=== PATIENT | female | born 1940 | race Caucasian/White ===

== ENCOUNTER 2018-04-30 09:45 | Outpatient (REF) | payer MEDICARE, OTHER, SELFPAY ==
[2018-04-30 19:59] LABS: ALT 26 U/L (12-78); AST 23 U/L (15-37); Albumin 3.6 g/dL (3.4-5.0); Alkaline Phosphatase 81 U/L (46-116); Anion Gap 6.1 mmol/L (3-11); BUN 14 mg/dL (7-18); Bilirubin, Total 0.5 mg/dL (0.2-1.0); CO2 29.9 mmol/L (21.0-32.0); CREATININE 0.84 mg/dL (0.55-1.02); Calcium 9.5 mg/dL (8.5-10.1); Chloride 102 mmol/L (98-107); Cholesterol 230 mg/dL (50-200); Glucose 90 mg/dL (70-100); HDL Cholesterol 70 mg/dL (40-60); LDL CHOLESTEROL 136 mg/dL (<100); Potassium 4.3 mmol/L (3.5-5.1); Sodium 138 mmol/L (136-145); Total Protein 7.4 g/dL (6.4-8.2); Triglyceride 138 mg/dL (30-150)
== END 2018-04-30 10:05 ==
LOC: NCHCN 09:45
PROVIDERS: PCP Nurse Practitioner Family; Visit Provider Physician Assistant Medical
DX: I63.9 Cerebral infarction, unspecified (principal); E78.89 Other lipoprotein metabolism disorders
CPT/HCPCS: 80053; 80061; 83721

== ENCOUNTER 2018-05-28 01:20 | Outpatient (CLI) | payer MEDICARE, OTHER, SELFPAY ==
--- NOTE | 2018-05-28 15:09 | DI.RAD_ITS ---
SYMPTOMS/DIAGNOSIS: HEALTH SCREENING, Z13.9, POSTMENOPAUSAL, Z78.0 DEXA SCAN: DEXA scan was performed according to the usual protocol. Findings for the lumbar spine scanning are a T score of 0.6. Findings for left hip scanning are a T score of -1.3 with left femoral neck T score of -1.5. Previous examination of March 2008 showed left hip T score of -0.8. Left forearm scanning shows a T score of -1.0. Please note that the lateral vertebral scanogram shows no evidence of vertebral compression fracture. CONCLUSION: Findings consistent with osteopenia according to the WHO criteria.
--- NOTE | 2018-05-28 16:22 | DI.MAMMO_ITS ---
SYMPTOMS/DIAGNOSIS: SCREENING, Z12.31, HEALTH SCREENING, Z13.9 MAMMOGRAM: Mammograms were interpreted according to the usual protocol including computer analysis with CAD system, tomosynthesis and C view imaging. The breasts are of moderate density with fairly symmetrical distribution of fibroglandular tissue. No dominant mass or clumped microcalcification is identified in either breast. Current examination is compared with the previous examinations including May 2017 and there has been no gross interval change in appearance in comparison with the previous studies. CONCLUSION: No specific evidence of malignancy at this time. Routine screening examinations are suggested at yearly intervals in this age group according to the ACS/ACR guidelines. Category 1, breast density category B. SA ASSESSMENT OF FINDINGS: Negative. Category 1. Patient will receive a letter notifying them of these results. BI-RADS category B. There are scattered areas of fibroglandular density.
== END 2018-05-28 01:40 ==
PROVIDERS: PCP Physician Assistant Medical; Visit Provider Physician Assistant Medical
DX: Z12.31 Encounter for screening mammogram for malignant neoplasm of breast (principal); M85.88 Other specified disorders of bone density and structure, other site; Z78.0 Asymptomatic menopausal state
CPT/HCPCS: 77063; 77067; 77080

== ENCOUNTER 2019-05-07 16:15 | Outpatient (REF) | payer MEDICARE, OTHER, SELFPAY ==
[2019-05-07 20:15] LABS: Abs Immature Grans 0.02 k/cumm (0.0-0.09); Absolute Basophil Count 0.04 k/cumm (0.0-0.2); Absolute Eosinophil Count 0.15 k/cumm (0.0-0.7); Absolute Lymphocyte Count 3.33 k/cumm (1.2-3.4); Absolute Monocyte Count 0.54 k/cumm (0.11-0.7); Absolute Neutrophil Count 4.43 k/cumm (1.2-6.7); Basophils % 0.5; Eosinophils % 1.8; HCT 42.7 % (36.0-46.0); HGB 14.1 g/dL (12.0-15.5); Immature Grans % 0.2; Lymphocytes % 39.1; Mean Corpuscular Hemoglobin 29.4 pg (27.0-33.0); Mean Platelet Volume 10.3 fL (8.0-11.0); Monocytes % 6.3; Neutrophils % 52.1; Platelet Count 394 x1000/uL (130-400); RBC Distribution Width 13.9 % (11.7-14.6); White Blood Cell Count 8.51 k/cumm (4.4-10.8)
[2019-05-07 20:33] LABS: ALT 30 U/L (14-59); AST 24 U/L (15-37); Albumin 3.7 g/dL (3.4-5.0); Alkaline Phosphatase 103 U/L (46-116); Anion Gap 11.2 mmol/L (3-11); BUN 21 mg/dL (7-18); Bilirubin, Total 0.2 mg/dL (0.2-1.0); CO2 24.8 mmol/L (21.0-32.0); CREATININE 0.78 mg/dL (0.55-1.02); Calcium 9.3 mg/dL (8.5-10.1); Chloride 104 mmol/L (98-107); Glucose 126 mg/dL (70-100); Potassium 4.2 mmol/L (3.5-5.1); Sodium 140 mmol/L (136-145); Total Protein 7.5 g/dL (6.4-8.2)
[2019-05-09 12:41] LABS: Hemoglobin A1C 5.5 % (4.5-6.2)
== END 2019-05-07 16:35 ==
LOC: NCHCN 16:15
PROVIDERS: PCP Physician Assistant Medical; Visit Provider Physician Assistant Medical
DX: R53.83 Other fatigue (principal); R73.9 Hyperglycemia, unspecified
CPT/HCPCS: 80053; 83036; 85025

== ENCOUNTER 2019-07-17 02:17 | Outpatient (CLI) | payer MEDICARE, OTHER, SELFPAY ==
--- NOTE | 2019-07-17 16:11 | DI.MAMMO_ITS ---
EXAM: MG MAMMO SCREENING CLINICAL HISTORY: SCREENING, [facility] Z00.00 TECHNIQUE: Mammograms were interpreted according to the usual protocol including computer analysis w [employer] CAD system, tomosynthesis and C-view imaging. COMPARISON: May 2018 FINDINGS: The breasts are of moderate density with fairly symmetrical distribution of fibroglandular tissue. N o dominant mass or clumped microcalcification is identified in either breast. Current examination is compared with previous examinations including May 2018 and there has been no gross interval khadijah nge in appearance in comparison with previous studies. IMPRESSION: No specific evidence of malignancy at this time. Routine screening examinations are suggested at year ly intervals in this age group according to the ACS/ACR guidelines. Category 1, breast density catego ry B. BI-RADS Cat 1 - Negative Breast Density - Category B - Scattered areas of fibroglandular density
== END 2019-07-17 02:37 ==
PROVIDERS: PCP Physician Assistant Medical; Visit Provider Physician Assistant Medical
DX: Z12.31 Encounter for screening mammogram for malignant neoplasm of breast (principal)
CPT/HCPCS: 77063; 77067

== ENCOUNTER 2020-05-05 10:46 | Outpatient (REF) | payer MEDICARE, OTHER, SELFPAY ==
[2020-05-05 20:51] LABS: Abs Immature Grans 0.01 10^3/uL (0.0-0.06); Absolute Basophil Count 0.06 10^3/uL (0.0-0.2); Absolute Eosinophil Count 0.11 10^3/uL (0.0-0.7); Absolute Lymphocyte Count 2.16 10^3/uL (1.2-3.4); Absolute Monocyte Count 0.49 10^3/uL (0.1-0.8); Absolute Neutrophil Count 3.32 10^3/uL (1.2-6.7); Eosinophils % 1.8; HCT 43.6 % (36.0-46.0); HGB 14.2 g/dL (11.2-15.7); Immature Grans % 0.2; Lymphocytes % 35.1; MCH 29.3 pg (27.0-33.0); MCHC 32.6 % (32.0-36.0); MCV 90.1 fL (80-95); MPV 10.2 fL (8.0-11.0); Neutrophils % 53.9; Nucleated RBC 0 %; Platelet Count 388 10^3/uL (130-400); RBC 4.84 10^6/uL (3.93-5.22); RDW 13.5 % (11.7-14.6); RDW-SD 44.6 fL; WBC 6.15 10^3/uL (4.4-10.8)
[2020-05-05 21:21] LABS: ALT 25 U/L (14-59); AST 22 U/L (15-37); Albumin 3.6 g/dL (3.4-5.0); Alkaline Phosphatase 91 U/L (46-116); Anion Gap 4.8 mmol/L (3-11); BUN 18 mg/dL (7-18); Bilirubin, Total 0.4 mg/dL (0.2-1.0); CO2 29.2 mmol/L (21.0-32.0); CREATININE 0.66 mg/dL (0.55-1.02); Calcium 9.6 mg/dL (8.5-10.1); Chloride 104 mmol/L (98-107); Glucose 82 mg/dL (74-106); Potassium 4.4 mmol/L (3.5-5.1); Sodium 138 mmol/L (136-145); TSH (W/Ref FT4) 1.44 uIU/mL (0.36-3.74); Total Protein 7.4 g/dL (6.4-8.2)
[2020-05-05 21:27] LABS: Hemoglobin A1C 5.4 % (<5.7)
== END 2020-05-05 11:06 ==
LOC: NCHCN 10:46
PROVIDERS: PCP Physician Assistant Medical; Visit Provider Physician Assistant Medical
DX: R53.83 Other fatigue (principal)
CPT/HCPCS: 80053; 83036; 84443; 85025

== ENCOUNTER 2021-02-04 03:52 | Outpatient (CLI) | payer MEDICARE, OTHER, SELFPAY ==
--- NOTE | 2021-02-04 | DI.MAMMO_ITS ---
Exam(s) MAMMO SCREENING EXAM: MAMMO SCREENING CLINICAL HISTORY: SCREENING, [facility],Z00.00 TECHNIQUE: Bilateral full field digital CC and MLO mammographic images were obtained with 3D tomosyn thesis and utilizing computer aided detection (CAD). COMPARISON: Available for comparison. FINDINGS: Masses/Architectural Distortion: None seen. Microcalcifications: No suspicious pleomorphic-type are seen. Skin Thickening/Nipple Retraction: None. IMPRESSION: 1. No significant interval change with no specific features of malignancy noted. 2. Unless there is more urgent need, screening mammography is recommended, as per [employer] guidelines. BI-RADS Category 1 - Negative Breast Density - Category B - Scattered areas of fibroglandular density Breast density category C or D implies that the patient has dense breast tissue. Dense breast tissue is very common and is not abnormal but dense breast tissue can make it harder to find cancer on a ma mmogram. Also, dense breast tissue may increase their breast cancer risk. This information about the result of the mammogram report was provided to the patient to raise their awareness. Use this report when you speak with the patient about their risks for breast cancer, which includes their family hist ory. At that time, you may recommend for more screening tests (Ultrasound or MRI) as they might be us eful based on their risk. A negative radiographic report should not delay biopsy if a dominant or clinically suspicious mass is present. Up to ten percent of cancers are not identified on mammography. A negative report may reinforce clinical impression. Adenosis and dense breasts may obscure an underlying neoplasm. False positive reports average 6 to 10%. Patient will receive a letter notifying them of these results.
== END 2021-02-04 04:12 ==
PROVIDERS: PCP Physician Assistant Medical; Visit Provider Physician Assistant Medical
DX: Z00.00 Encounter for general adult medical examination without abnormal findings (principal); Z12.31 Encounter for screening mammogram for malignant neoplasm of breast; R92.8 Other abnormal and inconclusive findings on diagnostic imaging of breast
CPT/HCPCS: 77063; 77067

== ENCOUNTER 2021-02-28 14:46 | Outpatient (REF) | payer MEDICARE, OTHER, SELFPAY ==
[2021-03-01 16:26] LABS: COVID-19 RT-PCR UVMMC Result Negative (Negative)
== END 2021-02-28 14:47 | disposition home or self-care (01) ==
LOC: NCHCN 14:46
PROVIDERS: PCP Physician Assistant Medical; Visit Provider Physician Assistant Medical
DX: Z20.822 Contact with and (suspected) exposure to COVID-19 (principal); J32.9 Chronic sinusitis, unspecified
CPT/HCPCS: U0003; U0005

== ENCOUNTER 2021-03-15 14:09 | Outpatient (REF) | payer MEDICARE, OTHER, SELFPAY ==
[2021-03-16 02:28] LABS: COVID-19 RT-PCR UVMMC Result Negative (Negative)
== END 2021-03-15 14:10 | disposition home or self-care (01) ==
LOC: NCHCN 14:09
PROVIDERS: PCP Physician Assistant Medical; Visit Provider Physician Assistant Medical
DX: Z20.822 Contact with and (suspected) exposure to COVID-19 (principal); J34.89 Other specified disorders of nose and nasal sinuses
CPT/HCPCS: U0003; U0005

== ENCOUNTER 2021-03-22 10:26 | Outpatient (REF) | payer MEDICARE, OTHER, SELFPAY ==
[2021-03-22 16:00] LABS: ALT 28 U/L (14-59); AST 23 U/L (15-37); Albumin 3.7 g/dL (3.4-5.0); Alkaline Phosphatase 101 U/L (46-116); Anion Gap 9.6 mmol/L (3-11); BUN 17 mg/dL (7-18); Bilirubin, Total 0.4 mg/dL (0.2-1.0); CO2 26.4 mmol/L (21.0-32.0); CREATININE 0.9 mg/dL (0.55-1.02); Calcium 9.3 mg/dL (8.5-10.1); Calculated LDL 148 mg/dL (<100); Chloride 105 mmol/L (98-107); Cholesterol 245 mg/dL (<200); Glucose 72 mg/dL (74-106); HDL Cholesterol 66 mg/dL (40-60); Potassium 4.8 mmol/L (3.5-5.1); Sodium 141 mmol/L (136-145); Total Protein 7.4 g/dL (6.4-8.2); Triglyceride 159 mg/dL (<150)
== END 2021-03-22 10:27 | disposition home or self-care (01) ==
LOC: NCHCN 10:26
PROVIDERS: PCP Physician Assistant Medical; Referring Provider Physician Assistant Medical; Visit Provider Physician Assistant Medical
DX: R03.0 Elevated blood-pressure reading, without diagnosis of hypertension (principal)
CPT/HCPCS: 80053; 80061

== ENCOUNTER 2021-04-18 10:45 | Outpatient (REF) | payer MEDICARE, OTHER, SELFPAY ==
[2021-04-20 16:15] LABS: COVID-19 RT-PCR UVMMC Result Positive (Negative)
== END 2021-04-18 10:46 | disposition home or self-care (01) ==
LOC: LBN 10:45
PROVIDERS: PCP Physician Assistant Medical; Visit Provider Physician Assistant
DX: Z20.822 Contact with and (suspected) exposure to COVID-19 (principal); J06.9 Acute upper respiratory infection, unspecified
CPT/HCPCS: U0003

== ENCOUNTER 2021-04-22 00:59 | Outpatient (CLI) | payer MEDICARE, OTHER, SELFPAY ==
[2021-04-22 08:30] VITALS: BP 170/79; PULSE 71; RESP 24; TEMP 36.9; O2SAT 95
[2021-04-22 08:42] VITALS: BP 170/79; PULSE 71; RESP 24; TEMP 36.9; O2SAT 95
[2021-04-22] MEDS: Normal Saline 500 ML 30 ML IV (09:24)
[2021-04-22 09:33] VITALS: BP 163/82; PULSE 61; RESP 24; TEMP 37.2; O2SAT 96
[2021-04-22 09:50] VITALS: BP 160/82; PULSE 64; RESP 20; TEMP 36.6; O2SAT 94
[2021-04-22 10:32] VITALS: BP 144/78; PULSE 59; RESP 20; TEMP 36.6; O2SAT 97
[2021-04-22] MEDS: Normal Saline Flush 10 ML SYR IVP (10:35)
[2021-04-22 10:45] VITALS: BP 161/75; PULSE 66; RESP 20; TEMP 36.9; O2SAT 97
== END 2021-04-22 01:00 | disposition home or self-care (01) ==
PROVIDERS: PCP Physician Assistant Medical; Visit Provider Family Medicine
DX: U07.1 COVID-19 (principal)
CPT/HCPCS: 96365

== ENCOUNTER 2022-04-25 19:09 | Outpatient (REF) | payer MEDICARE, OTHER, SELFPAY ==
[2022-04-25 15:22] LABS: HCT 42.6 % (36.0-46.0); HGB 14.1 g/dL (11.2-15.7); MCH 29.7 pg (27.0-33.0); MCHC 33.1 % (32.0-36.0); MCV 90 fL (80-95); Platelet Count 388 10^3/uL (130-400); RBC 4.74 10^6/uL (3.93-5.22); RDW 13.4 % (11.7-14.6); RDW-SD 44.7 fL; WBC 7.88 10^3/uL (4.4-10.8)
[2022-04-25 15:57] LABS: ALT 24 U/L (14-59); AST 23 U/L (15-37); Albumin 3.7 g/dL (3.4-5.0); Alkaline Phosphatase 96 U/L (46-116); Anion Gap 7.9 mmol/L (3-11); BUN 16 mg/dL (7-18); Bilirubin, Total 0.3 mg/dL (0.2-1.0); CO2 27.1 mmol/L (21.0-32.0); CREATININE 0.8 mg/dL (0.55-1.02); Calcium 9.4 mg/dL (8.5-10.1); Chloride 103 mmol/L (98-107); Estimated GFR 73.06 (mL/min/1.73m2); Glucose 124 mg/dL (74-106); Potassium 3.6 mmol/L (3.5-5.1); Sodium 138 mmol/L (136-145); Total Protein 7.7 g/dL (6.4-8.2)
[2022-04-28 15:42] LABS: Hemoglobin A1C 5.4 % (<5.7)
== END 2022-04-25 19:10 | disposition home or self-care (01) ==
LOC: NCHCN 19:09
PROVIDERS: PCP Physician Assistant Medical; Visit Provider Physician Assistant Medical
DX: R03.0 Elevated blood-pressure reading, without diagnosis of hypertension (principal); R73.9 Hyperglycemia, unspecified
CPT/HCPCS: 80053; 85027; 83036

== ENCOUNTER 2023-05-21 10:40 | Outpatient (REF) | payer MEDICARE, OTHER, SELFPAY ==
[2023-05-21 15:21] LABS: HCT 43.3 % (36.0-46.0); HGB 14.8 g/dL (11.2-15.7); MCH 29.3 pg (27.0-33.0); MCHC 34.2 % (32.0-36.0); MCV 86 fL (80-95); MPV 9.6 fL (8.0-11.0); Platelet Count 438 10^3/uL (130-400); RBC 5.05 10^6/uL (3.93-5.22); RDW 13.4 % (11.7-14.6); RDW-SD 42.1 fL; WBC 7.64 10^3/uL (4.4-10.8)
[2023-05-21 15:38] LABS: ALT 26 U/L (14-59); AST 21 U/L (15-37); Albumin 3.5 g/dL (3.4-5.0); Alkaline Phosphatase 101 U/L (46-116); Anion Gap 8.3 mmol/L (3-11); BUN 18 mg/dL (7-18); Bilirubin, Total 0.5 mg/dL (0.2-1.0); CO2 26.7 mmol/L (21.0-32.0); CREATININE 0.8 mg/dL (0.55-1.02); Calcium 9.7 mg/dL (8.5-10.1); Calculated LDL 137 mg/dL (<100); Chloride 102 mmol/L (98-107); Cholesterol 232 mg/dL (<200); Estimated GFR 72.61 (mL/min/1.73m2); Glucose 92 mg/dL (74-106); HDL Cholesterol 65 mg/dL (40-60); Sodium 137 mmol/L (136-145); Total Protein 7.6 g/dL (6.4-8.2); Triglyceride 150 mg/dL (<150)
== END 2023-05-21 10:41 | disposition home or self-care (01) ==
LOC: NCHCN 10:40
PROVIDERS: PCP Physician Assistant Medical; Visit Provider Physician Assistant Medical
DX: K21.9 Gastro-esophageal reflux disease without esophagitis (principal); E78.89 Other lipoprotein metabolism disorders; R03.0 Elevated blood-pressure reading, without diagnosis of hypertension
CPT/HCPCS: 80053; 80061; 85027

== ENCOUNTER 2023-07-14 06:04 | Inpatient (IN) | payer MEDICARE, OTHER, SELFPAY ==
[2023-07-14] VITALS (113 sets, daily range): BP systolic 99–182; BP diastolic 48–106; PULSE 51–91; RESP 9–26; TEMP 36.2–37.1; O2SAT 93–99
--- NOTE | 2023-07-14 06:00 | RT.EKG_ITS ---
APPROVED REPORT Exam: Resting ECG Reason for Exam: Stroke alert Patient Location: E HR:59 bpm ECG Measurements Heart Rate 59 AXIS NJ 166 P 39 QRSd 85 QRS -7 QT 396 T -37 QTc 394 Conclusion Sinus bradycardia...rate< 60 Probable left atrial enlargement...P >50mS, <-0.10mV V1 Probable LVH with secondary repol abnrm...multiple LVH criteria Inferior infarct, age indeterminate...Q>35mS, T neg, II III aVF
--- NOTE | 2023-07-14 06:27 | NUR.NOTE ---
0627: Pt brought in by granddaughter for stroke concern. Pt states around 2100 last night began having L arm numbness/tingling 'like it fell asleep' 'similar to my mini stroke I had a long time ago' and felt more tired than normal so went to sleep. This AM ~0500 called son, who commented that she 'wasn't talking right'. Granddaughter called and felt similar so she picked pt up. Pt CAOX3 w/ pupils PERRLA 3-2mm brisk. Able to repeat back simple phrases ('The siddhartha is marta in [facility]'), read simple words w/o obvious expressive/receptive aphasia (mama, tip-top, fifty-fifty, baseball, huckleberry). However, slurred speech noted by this RN r/t L facial droop. R eyelid ptosis also noted. Pt demonstrated LUE weakness (moderate) on grasps, push/pull test, and LUE extremity pronator drift w/ eyes closed and arms elevated whiel RUE extremity remained steady. LLE seemed grossly unchanged and of equal strength comparative to RLE, but granddaughter did state she felt that pt's gait was 'off. Like she's dragging her L foot a little'. MD Bond updated and aware. At bedside to assess. Stroke protocol initiated.
--- NOTE | 2023-07-14 06:30 | DI.CT_ITS ---
Exam(s) CT BRAIN NECK CTA EXAM: CT BRAIN NECK CTA CLINICAL HISTORY: left arm weakness, slurred speech. TECHNIQUE: Imaging Protocol: Axial CT angiography was performed with multi-slice acquisition and mu lti-planar and/or 3D reconstructions. CONTRAST MATERIAL: Intravenous: Omnipaque 350 contrast volume:100 mL COMPARISON: CT CT HEAD - STROKE PROTOCOL from 09/16/2016 FINDINGS: CT Head W/O and W: Ventricles and Extra axial spaces: Normal in size and morphology for the patient's age. Hemorrhage: None. Cerebral parenchyma: There are areas of decreased attenuation in the white matter consistent with sma ll vessel ischemic disease. No mass effect is identified. Midline shift: None. Brainstem/Cerebellum: Normal. Calvarium: Normal. Visualized Paranasal sinuses/Mastoids: Clear. Soft Tissues: Unremarkable. Enhancement: Unremarkable. CTA Neck W: Common Carotid: Right: No dissection, occlusion or significant stenosis. Left: No dissection, occlusion or significant stenosis. External Carotid: Right: No occlusion or significant stenosis. Left: No occlusion or significant stenosis. Internal Carotid: Right: No dissection, occlusion or significant stenosis. Left: No dissection, occlusion or significant stenosis. Vertebral Artery: Right: No dissection, occlusion or significant stenosis. Left: No dissection, occlusion or significant stenosis. Lung Apices: Normal. Bones: Within normal limits for the patient's age. Soft Tissues: Normal. Thyroid gland: There is a heterogeneous 3.8 transverse by 3.9 AP by 5.7 craniocaudad left thyroid mas s. Nonemergent thyroid ultrasound is recommended. It causes rightward deviation of the trachea. CTA Brain W: Internal Carotid Arteries: No aneurysm, occlusion or significant stenosis. Anterior Cerebral Arteries: Right: No aneurysm, occlusion or significant stenosis. Left: No aneurysm, occlusion or significant stenosis. Middle Cerebral Arteries: Right: No aneurysm, occlusion or significant stenosis. Left: No aneurysm, occlusion or significant stenosis. Posterior Cerebral Arteries: Right: No aneurysm, occlusion or significant stenosis. The right posterior cerebral artery arises fr om the right posterior communicating artery which is a normal variant. Left: No aneurysm, occlusion or significant stenosis. Vertebral Arteries: Right: No aneurysm, occlusion or significant stenosis. Left: No aneurysm, occlusion or significant stenosis. Basilar Artery: No aneurysm, occlusion or significant stenosis. IMPRESSION: 1. No large vessel occlusion or significant stenosis on the CT angiography of the head. 2. No acute intracranial process. 3. No occlusion or significant stenosis on the CT angiography of the neck. 4. 3.8 x 3.9 x 5.7 cm heterogeneous left thyroid mass. Nonemergent thyroid ultrasound is recommended for further evaluation. RADIATION DOSE DELIVERED: 1,681.23mGy.cm Total DLP DATA REPOSITORY: All CT scans at this facility are submitted to the National Radiology Data Registry (NRDR) Dose Index Registry (DIR) with the [employer] (ACR). RADIATION OPTIMIZATION: All CT scans at this facility use at least one of these dose optimization te chniques: automated exposure control; mA and/or kV adjustment per patient size (includes targeted exa ms where dose is matched to clinical indication); or iterative reconstruction.
--- NOTE | 2023-07-14 06:30 | DI.RAD_ITS ---
Exam(s) XR CHEST 2V PA LATERAL EXAM: XR CHEST 2V PA LATERAL CLINICAL HISTORY: left arm weakness, stroke TECHNIQUE: 2D digital imaging was performed of the chest. Two images were obtained. PA and lateral views were obtained. COMPARISON: No exams were available for comparison FINDINGS: MEDIASTINUM: Normal. HEART: Normal. PULMONARY VASCULATURE: Normal. LUNGS: There is a question of a small nodule in the lateral aspect of the right lung overlying the ri ght 8th rib. The lungs are otherwise clear. PLEURAL SPACE: No pleural effusion or pneumothorax. BONE:Within normal limits for the patient's age. OTHER FINDINGS:Normal. IMPRESSION: 1. No acute pulmonary findings. 2. Question of a right lung nodule versus rib lesion. A CT scan of the chest may be obtained for fur ther evaluation. Unexpected findings DATA REPOSITORY: RADIATION DOSE DELIVERED:
[2023-07-14 06:43] LABS: Abs Immature Grans 0.01 10^3/uL (0.0-0.06); Absolute Basophil Count 0.06 10^3/uL (0.0-0.2); Absolute Eosinophil Count 0.18 10^3/uL (0.0-0.7); Absolute Lymphocyte Count 2.56 10^3/uL (1.2-3.4); Absolute Monocyte Count 0.58 10^3/uL (0.1-0.8); Absolute Neutrophil Count 3.27 10^3/uL (1.2-6.7); Basophils % 0.9; Eosinophils % 2.7; HCT 44.6 % (36.0-46.0); HGB 14.7 g/dL (11.2-15.7); Immature Grans % 0.2; Lymphocytes % 38.4; MCH 28.8 pg (27.0-33.0); MCV 87 fL (80-95); MPV 9.5 fL (8.0-11.0); Monocytes % 8.7; Neutrophils % 49.1; Platelet Count 406 10^3/uL (130-400); RBC 5.11 10^6/uL (3.93-5.22); RDW 13.9 % (11.7-14.6); WBC 6.66 10^3/uL (4.4-10.8)
--- NOTE | 2023-07-14 06:46 | W.ED.GENAD ---
HPI General Stated Complaint: CVA/TIA TONIE: 2 Date/Time Provider Initiated Documentation: 07/14/23 06:07. HPI Narrative: The patient is an 83-year-old female, with a past medical history significant for glaucoma, GERD, and hypertension (taking a minimal dose of amlodipine), who presents to the emergency department this morning at approximately 6:30 AM complaining of left-sided weakness and some slurred speech. The patient has a history of a TIA in the past and began developing tingling and heaviness in her left arm last night at approximately 9 PM. She ultimately got up and went to bed at around 10 PM thinking that she was simply tired. She woke several times during the night and went to urinate but the arm continued to be weak. She began to develop a sensation of some left foot weakness as well. She called her son to tell him about her symptoms and he felt as though her speech was slurred on the phone. She tells me now that she feels like her speech is returned to normal. However, the left arm and left leg weakness have continued. The patient denies any associated chest pain, palpitations, shortness of breath, headache, nausea, vomiting, diarrhea, fevers, or chills. Related Data Home Medications Medication Instructions Recorded Confirmed acetaminophen 500 mg tablet (Mapap 500 mg PO PRN 12/19/13 07/14/23 Extra Strength) fluticasone propionate 50 2 spry NS DAILY PRN 12/19/13 07/14/23 mcg/actuation nasal spray,suspension (Flonase) latanoprost 0.005 % eye drops 1 drp ophthalmic (eye) DIRECTED 12/19/13 07/14/23 (Xalatan) aspirin 81 mg chewable tablet 81 mg CH DAILY ##30 09/18/16 07/14/23 Bacillus coagulans 10 billion cell cell PO 06/09/21 06/09/21 capsule,delayed release (Probiotic (B. coagulans)) cod liver oil 1 cap PO DAILY 06/09/21 07/14/23 conjugated estrogens 0.625 mg/gram 0.625 mg vaginal DAILY 06/09/21 07/14/23 vaginal cream (Premarin) dicyclomine 10 mg capsule 10 mg PO QID PRN 06/09/21 07/14/23 dicyclomine 10 mg capsule 10 mg PO QID PRN 06/09/21 07/14/23 famotidine 20 mg tablet 20 mg PO BID 06/09/21 07/14/23 triamcinolone acetonide 0.1 % 1 applic topical BID PRN 06/09/21 07/14/23 topical cream amlodipine 5 mg tablet 5 mg PO DAILY 07/14/23 07/14/23 pantoprazole 40 mg tablet,delayed 40 mg PO DAILY 07/14/23 07/14/23 release (Protonix) Previous Rx's Medication Instructions Recorded aspirin 81 mg chewable tablet 81 mg CH DAILY ##30 09/18/16 Allergies Allergy/AdvReac Type Severity Reaction Status Date / Time hydrocodone bitartrate Allergy Intermediate itch and Unverified 06/09/21 09:29 [From Vicodin] breakout [facility] All Active Problems (Updated 06/09/21 @ 10:20 by Shelby Florez MD) Postmenopausal atrophic vaginitis (Acute) Elevated blood pressure reading (Acute) Medical History (Updated 06/09/21 @ 10:20 by Shelby Florez MD) Degenerative joint disease Goiter, nodular Malignant neoplasm of colon with rectum GERD (gastroesophageal reflux disease) CVA (cerebral vascular accident) 2017 COVID-19 TIA (transient ischemic attack) Surgical History (Updated 06/09/21 @ 10:20 by Shelby Florez MD) History of cholecystectomy H/O partial resection of colon H/O total hysterectomy 2009 Social History (Updated 06/09/21 @ 09:41 by Susana Silva) Smoking/Tobacco Use Status: Never Smoking risk assessment performed?: Yes Alcohol Intake: current Alcohol Intake frequency: holidays/special occasions only Drug use: Never Substance use type: does not use Household members: spouse Housing: house Communication Needs: Corrective Lenses Education Level: high school Do you need help understanding health information?: Rarely 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 Pets and animals: No Sexually active: No Do you think of yourself as: straight/heterosexual Current gender identity: female What is your relationship status?: Panel score (0-1 are the most socially isolated patients): 1 Special carla needs: No Agree to transfusion: Yes Seatbelt use: always Helmet use: Yes Drive intox or ride w/intox driver medic: No Working smoke detector in home: Yes Fire extinguisher in home: Yes Carbon monox detector in home: Yes Firearms in home: Yes Do you feel safe in your relationship?: Yes Female Reproductive History Menstrual Age of Menarche: 12 Duration of menses: 3-5 days Menopause type: natural Date of menopause: 07/09/87 History History 4 Para Hx # Term Pregnancies 4 Multiple births Hx # Pregnancies Ectopic pregnancies AB induced Hx Number of Living Children 4 AB spontaneous PAWSS Have you Been Recently Intoxicated or Drunk Within the Last 30 days?: No Have you Ever Experienced Previous Episodes of Alcohol Withdrawal?: No Have you ever Experienced Withdrawal Seizures?: No Have you ever Experienced Delirium Tremens(DT)s?: No Have you ever undergone Alcohol Rehabilitation Treatment (i.e, inpt ot outpatient treatment programs)?: No Have you ever Experienced Blackouts?: No Have you ever Combined Alcohol with other Downers within the last 90 days?: No Have you ever Combined Alcohol with any other Substance of Abuse during the last 90 days?: No Positive Blood Alcohol level on Presentation? [PCS.BAL]: No Evidence of Increased Autonomic Activity (i.e. HR>120, tremor, sweating, agitation, nausea)?: No Result: 0 Exam Const General: cooperative, no acute distress, well groomed and well hydrated HENDE Head: normocephalic and atraumatic General nose exam: external nose normal and no nasal discharge Mouth: oral mucosae normal and moist mucous membranes Eyes Visual Newman: normal visual newman by confrontation Pupils: PERRL EOM: EOM intact bilaterally Neck Other: The patient spontaneously moves the neck and all directions without difficulty. There are no bruits appreciated to auscultation. Resp Effort & Inspection: normal respiratory effort Auscultation: clear to auscultation bilaterally Cardio Rate: regular rate Rhythm: regular rhythm Heart Sounds: S1 normal and S2 normal Skin General skin exam: no rashes or lesions noted and turgor normal Neuro Other: The patient's NIH stroke scale is 3 for drift in the left extremities and mild aphasia. The patient has minimal facial findings, and there does not appear to be any problems with sensory deficits, current speech deficits, or visual field deficits. Extrem Right upper extremity: normal to inspection and full ROM Left upper extremity: normal to inspection and full ROM Course Vital Signs Vital signs: Vital Signs Respiratory Rate 19 07/14/23 06:11 Temperature 36.5 C 07/14/23 06:15 Temperature Source Temporal Artery Scan 07/14/23 06:15 Pulse 58 L 07/14/23 06:31 Respiratory Rate 14 07/14/23 06:45 Respiratory Effort Normal, Non-Labored 07/14/23 06:18 Respiratory Depth Normal 07/14/23 06:18 Respiratory Pattern Normal 07/14/23 06:18 Blood Pressure 154/62 H 07/14/23 06:31 Blood Pressure Position Sitting 07/14/23 06:15 Pulse Oximetry 96 07/14/23 06:45 Oxygen Delivery Method Room Air 07/14/23 06:15 Oxygen Flow Rate 0 07/14/23 06:15 Pain Level 0 07/14/23 06:15 Lab/Test Results Lab/Test Results: Laboratory Tests Range/Units 07/14/23 06:31 PT Cancelled INR Cancelled Medical Decision Making The patient was seen and examined. She began her symptoms last night at 9 PM which are 10 hours ago. The patient has an NIH stroke scale of between 3 and 4. This does most likely represent an acute CVA. Once the head CT and CTA of the head and neck are obtained, neurology can be consulted at [facility]. I am doubtful that in this timeframe given this low NIH stroke score but the patient will be a candidate for thrombolytic therapy. Labs were sent for the patient to assess for myocardial ischemia and electrolyte abnormalities. The patient's EKG reveals a sinus bradycardia with no obvious pattern injury ischemia. Case signed out to Dr. Herman at 7 AM for review of the CT/CTA, labs, and likely neurology consultation via [facility]. Quality:[facility] Health Related Social Needs: No Data to Display Discharge Plan Discharge Details Chief Complaint: CVA/TIA Primary Care Provider: Eulogio Ordaz ED Provider: Lars Bond Home Meds and New Rx's Prescriptions: No Action famotidine 20 mg tablet 20 mg PO BID dicyclomine 10 mg capsule 10 mg PO QID PRN Patient Comments: I TAKE IT ONCE OR TWICE A DAY FOR MY CRAMPY STOMACH Probiotic (B. coagulans) 10 billion cell capsule,delayed release(DR/EC) PO Premarin 0.625 mg/gram cream 0.625 mg vaginal DAILY Patient Comments: pt uses 1-2 times a week Rx Instructions: off 5 days; repeat cycle triamcinolone acetonide 0.1 % cream 1 applic topical BID PRN Patient Comments: pt uses around vagina cod liver oil Capsule 1 cap PO DAILY latanoprost [Xalatan] 2.5 ML drops 1 drp Ophthalmic DIRECTED acetaminophen [Mapap Extra Strength] 500 MG tablet 500 mg PO PRN fluticasone propionate [Flonase] 16 GM spray,suspension 2 spry NS DAILY PRN dicyclomine 10 mg capsule 10 mg PO QID PRN Patient Comments: pt states she uses it 2-3 times a week aspirin 81 MG tablet,chewable 81 mg CH DAILY Qty: 30 0RF amlodipine 5 mg tablet 5 mg PO DAILY Patient Comments: TAKE ONE TABLET BY MOUTH EVERY DAY pantoprazole [Protonix] 40 mg tablet,delayed release (DR/EC) 40 mg PO DAILY Patient Comments: Take 1 tablet by mouth once a day TO REPLACE PRILOSEC
[2023-07-14 06:59] LABS: INR 1.1 (0.9-1.1); Prothrombin Time 10.6 sec (9.1-11.1)
[2023-07-14 07:05] LABS: Calculated LDL 152 mg/dL (<100); Cholesterol 251 mg/dL (<200); HDL Cholesterol 87 mg/dL (40-60); Triglyceride 61 mg/dL (<150)
[2023-07-14 07:10] LABS: ALT 29 U/L (14-59); AST 29 U/L (15-37); Albumin 3.7 g/dL (3.4-5.0); Alkaline Phosphatase 95 U/L (46-116); Anion Gap 8.1 mmol/L (3-11); BUN 12 mg/dL (7-18); Bilirubin, Total 0.6 mg/dL (0.2-1.0); CO2 29.9 mmol/L (21.0-32.0); CREATININE 0.9 mg/dL (0.55-1.02); Calcium 9.9 mg/dL (8.5-10.1); Chloride 102 mmol/L (98-107); Estimated GFR 63.04 (mL/min/1.73m2); Glucose 100 mg/dL (74-106); Potassium 3.7 mmol/L (3.5-5.1); Sodium 140 mmol/L (136-145); Total Protein 7.9 g/dL (6.4-8.2); Troponin I < 50 ng/L (<or=60)
[2023-07-14] MEDS: Omnipaque 350 MG/ML 100 ML BTL IJ (07:28)
--- NOTE | 2023-07-14 07:44 | DI.VRAD_ITS ---
PROCEDURE INFORMATION: Exam: CTA Head Without And With Contrast, Arteriography Exam date and time: 07/14/2023 7:09 AM Age: 83 years old Clinical indication: Stroke-like symptoms; Speech disturbance; Lt upper extremity weakness TECHNIQUE: Imaging protocol: Computed tomographic angiography of the head without and with contrast. Exam focused on the arteries. 3D rendering (Not supervised by radiologist): MIP and/or 3D reconstructed images were created by the technologist. Other technique: STROKE PROTOCOL was implemented. COMPARISON: MRI - BRAIN WO CONTRAST 09/18/2016 4:19 PM FINDINGS: ANTERIOR CIRCULATION: Right internal carotid artery: Intracranial segment is patent with no significant stenosis or occlusion. No aneurysm. Right middle cerebral artery: No occlusion or significant stenosis. No aneurysm. Right anterior cerebral artery: No occlusion or significant stenosis. No aneurysm. Left internal carotid artery: Intracranial segment is patent with no significant stenosis. No aneurysm. Left middle cerebral artery: No occlusion or significant stenosis. No aneurysm. Left anterior cerebral artery: No occlusion or significant stenosis. No aneurysm. POSTERIOR CIRCULATION: Right vertebral artery: No occlusion or significant stenosis. No aneurysm. Left vertebral artery: No occlusion or significant stenosis. No aneurysm. Basilar artery: No occlusion or significant stenosis. No aneurysm. Right posterior cerebral artery: origin. No occlusion or significant stenosis. No aneurysm. Left posterior cerebral artery: No occlusion or significant stenosis. No aneurysm. HEAD: Brain: Normal. No hemorrhage. Unremarkable white matter. No mass effect. Cerebral ventricles: Normal. No ventriculomegaly. Bones/joints: Unremarkable. No acute fracture. Paranasal sinuses: Visualized sinuses are normal. No fluid levels. Mastoid air cells: Visualized mastoids are normal. No mastoid effusion. Soft tissues: Unremarkable. IMPRESSION: 1. No large vessel occlusion. 2. Unremarkable CT head. ASSESSMENT: ASPECTS (Margret Stroke Program Early CT Score) is 10. PROCEDURE INFORMATION: Exam: CTA Neck With Contrast Exam date and time: 07/14/2023 7:09 AM Age: 83 years old Clinical indication: Stroke-like symptoms; Speech disturbance; Lt upper extremity weakness TECHNIQUE: Imaging protocol: Computed tomographic angiography of the neck with contrast. Exam focused on the cervical segments of the vasculature. 3D rendering (Not supervised by radiologist): MIP and/or 3D reconstructed images were created by the technologist. COMPARISON: US CAROTID ULTRASOUND 09/18/2016 3:25 PM FINDINGS: Right common carotid artery: No stenosis. No dissection or occlusion. Right internal carotid artery: No stenosis of the extracranial segment. No dissection or occlusion. Right external carotid artery: No occlusion or stenosis of the origin. Left common carotid artery: No stenosis. No dissection or occlusion. Left internal carotid artery: No stenosis of the extracranial segment. No dissection or occlusion. Left external carotid artery: No occlusion or stenosis of the origin. Right vertebral artery: No stenosis. No dissection or occlusion. Left vertebral artery: No stenosis. No dissection or occlusion. Thyroid: There is a left thyroid lobe 5.5 cm predominantly cystic nodule with heterogenous internal enhancement. Soft tissues: Normal. No significant soft tissue swelling. Bones/joints: Moderate cervical spondylosis. No acute fracture. IMPRESSION: 1. No stenosis or occlusion. 2. Heterogenously enhancing, predominantly cystic 5.5 cm left thyroid lobe nodule. Recommend nonemergent/outpatient correlation with thyroid ultrasound. REFERENCES: NASCET CRITERIA. The degree of stenosis in the cervical segment of the internal carotid artery is based on NASCET criteria. Normal is no stenosis. Mild is less than 50% stenosis. Moderate is 50-69% stenosis. Severe is 70% to 99% stenosis. Total occlusion is no detectable patent lumen. Dictated and Authenticated by: Delilah Bran MD. Ordering:BRITTANEY Sousa MD
--- NOTE | 2023-07-14 07:45 | DI.VRAD_ITS ---
PROCEDURE INFORMATION: Exam: XR Chest Exam date and time: 07/14/2023 7:22 AM Age: 83 years old Clinical indication: Other: L sided weakness, slurred speech TECHNIQUE: Imaging protocol: Radiologic exam of the chest. Views: 2 views. COMPARISON: CT BRAIN NECK CTA 07/14/2023 7:09 AM FINDINGS: Lungs: No consolidation. Pleural spaces: No pleural effusion. No pneumothorax. Heart/Mediastinum: No cardiomegaly. Bones/joints: Degenerative changes of the shoulders and thoracic spine. IMPRESSION: No acute findings. Dictated and Authenticated by: Delilah Bran MD. Ordering:BRITTANEY Sousa MD
--- NOTE | 2023-07-14 08:17 | W.EDPROG ---
Date of service: 07/14/23 Time of Service: 07:00 Medical Decision Making 10:03 AM I have spoken with the hospitalist after reexamining the patient who has improvement in her left arm weakness. Hospitalist has agreed to admit her. She will assess the nurses to check whether the patient can swallow at the bedside and if she can she can get aspirin and she requested a neurology consult but is excepted the patient here. I have informed the patient and the family of the results of the CT and the plan to admit there was understanding agreement with that plan. 1 PM I have discussed the case with [facility] neurology Dr. Sun. She suggested the patient be kept on aspirin alone. She recommended hemoglobin A1c, MRI, echocardiogram and LDL and advised to keep the started on a statin if her LDL is elevated. I discussed the case with Dr. Arthur. Imaging Data Radiologic Study: Imaging: X-Ray (Chest x-ray) Radiologist's impression: Impression no acute findings. Radiologic Study #2: Imaging: CT Scan (CTA brain with and without contrast) Radiologist's impression: vRad impression no large vessel occlusion. 2. Unremarkable head CT. Radiologic Study #3: Imaging: CT Scan (CTA neck with contrast) Radiologist's impression: 1. No stenosis or occlusion. 2. Heterogenously enhancing, predominantly cystic 5.5 cm left thyroid lobe nodule. Recommend nonemergent/outpatient correlation with thyroid ultrasound. (The patient's daughter was notified of this finding) Quality:SDOH Health Related Social Needs: No Data to Display Sign Out Sign Out Data: Sign Out Comment: Patient with new left sided weakness, approximately 10 hours from onset of symptoms with NIH stroke scale of 3-4. Undergoing labs, CT/CTA, will need neurology phone consult for management. Signed out to Dr. Herman at 0800. Last updated by Lars Bond MD at 07/14/23 07:39 Discharge Plan Disposition Patient Disposition: Admit to [facility] Condition: Improving Discharge Details Clinical Impression: Acute CVA (cerebrovascular accident) Admit Date/Time: 07/14/23 10:08 Admit Provider: Thelma Arthur Attending Provider: Thelma Arthur Primary Care Provider: Eulogio Ordaz ED Provider: Fatmata Herman Discharge Data Discharge Physician: Fatmata Herman
[2023-07-14 09:48] LABS: Troponin I < 50 ng/L (<or=60)
[2023-07-14] MEDS: Aspirin 81 MG CHEW 324 MG CH (10:20)
--- NOTE | 2023-07-14 12:22 | HPE_ITS ---
Date of service: 07/14/23 Time of Service: 12:23 Assessment and Plan Assessment and plan (1) Acute CVA (cerebrovascular accident): Status: Acute Assessment and plan: CT no acute finding Head and neck CTA: No large vessel occlusion, significant stenosis . No acute intracranial process. No occlusion or significant stenosis on the CT angiography of the neck. 4. 3.8 x 3.9 x 5.7 cm heterogeneous left thyroid mass. Nonemergent thyroid ultrasound is recommended for further evaluation. Resolving left upper and lower ext. weakness Residual left facial droop, smile is normal Neuro consult with [facility]: ASA 81 mg po daily, no plavix at this time Neuro consult on Sunday MRI Echo with bubble study labs: lipid panel, Hgb A1C, TSH, B12 level lipitor 40 mg po today and evaluate if continuation and or adjustement needed PT and OT consults Speech consult (2) Elevated blood pressure reading: Status: Acute Assessment and plan: Permissive hypertension to SBP 190 Holding home anti-hypertensive ; hold amlodipine (3) On deep vein thrombosis (DVT) prophylaxis: Status: Resolved Assessment and plan: started on Enoxaparin SC (4) Discharge planning issues: Status: Resolved Assessment and plan: CM to f/u with increase needs regarding discharge.Spouse is also hospitalized at this time Palliative care consult ordered discussed with Dr. Arthur History of Present Illness History of Present Illness Chief Complaint: Left arm weakness, slurred speech Narrative: 83 years old female patient with a past medical history of GERD, hypertension on amlodipine, glaucoma presented to the ED at [facility] today at 6:30 AM for evaluation of left sided weakness started last night around 10 PM and slurred speech. During the night, the patient reported waking up to void but still felt that her left arm was still weak, and then developed a sensation of some left foot weakness as well. When speaking to her her son, he also mentioned feeling that her speech was slurred on the phone. On arrival to the ED the patient verbalized ongoing left-sided upper and lower extremity weakness but felt that her slurred speech was resolved. In the emergency room she also denied chest pain, palpitations, shortness of breath, headache, nausea, vomiting, diarrhea, fever, or chills. In the emergency room, the provider noted that the patient had a NIH stroke scale of 3-4 most likely from an acute CVA. Head and neck CT were obtained and showed no acute finding except for a thyroid mass that can be investigated outpatient. Per neurology consult with [facility] was obtained and only recommended aspirin 81 mg po daily.The hospitalist was consulted and accepted the patient as an inpatient with telemetry on the medical-surgical unit. When met today, the patient denies dizziness,headache, lightheadedness, blurred vision, change in vision, night sweats, fever. chills, chest congestion, cough, nausea, vomiting, diarrhea, constipation,abdominal pain, hematochezia or melena or dysuria. She reports that the left-sided upper and lower extremity weakness is mostly resolved, as she has been able to exercise and ambulate to the bathroom with one assist. Patient verbalized she did not want to be revived if her heart stopped and did not want to be intubated if she could not breathe; code status is DNR/DNI. PFSH All Active Problems (Updated 08/17/23 @ 00:04 by KERRI KHALIL) Stress at home (Acute) Ataxia of left upper extremity (Acute) Left hemiparesis (Acute) Advanced care planning/counseling discussion (Acute) Acute CVA (cerebrovascular accident) (Acute) Postmenopausal atrophic vaginitis (Acute) Elevated blood pressure reading (Acute) Medical History (Updated 08/17/23 @ 00:04 by KERRI KHALIL) Degenerative joint disease Goiter, nodular Malignant neoplasm of colon with rectum GERD (gastroesophageal reflux disease) CVA (cerebral vascular accident) 2017 COVID-19 TIA (transient ischemic attack) Surgical History (Updated 06/09/21 @ 10:20 by Shelby Florez MD) History of cholecystectomy H/O partial resection of colon H/O total hysterectomy 2009 Family History (Updated 07/14/23 @ 18:41 by Alix Carter APRN) Brother Cancer Father Cancer Sister Stroke Brother Heart disease Social History (Updated 06/09/21 @ 09:41 by Susana Silva) Smoking/Tobacco Use Status: Never Smoking risk assessment performed?: Yes Alcohol Intake: current Alcohol Intake frequency: holidays/special occasions only Drug use: Never Substance use type: does not use Household members: spouse Housing: house Communication Needs: Corrective Lenses Education Level: high school Do you need help understanding health information?: Rarely 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 Pets and animals: No Sexually active: No Do you think of yourself as: straight/heterosexual Current gender identity: female What is your relationship status?: Panel score (0-1 are the most socially isolated patients): 1 Special carla needs: No Agree to transfusion: Yes Seatbelt use: always Helmet use: Yes Drive intox or ride w/intox tank truck driver: No Working smoke detector in home: Yes Fire extinguisher in home: Yes Carbon monox detector in home: Yes Firearms in home: Yes Do you feel safe in your relationship?: Yes Female Reproductive History Menstrual Age of Menarche: 12 Duration of menses: 3-5 days Menopause type: natural Date of menopause: 07/09/87 History History 2 4 Para Hx # Term Pregnancies 4 Multiple births Hx # Pregnancies Ectopic pregnancies AB induced Hx Number of Living Children 4 AB spontaneous Meds Allergies and Home Medications Allergies Allergy/AdvReac Type Severity Reaction Status Date / Time hydrocodone bitartrate Allergy Intermediate itch and Unverified 06/09/21 09:29 [From Vicodin] breakout Home Medications Medication Instructions Recorded Confirmed Type acetaminophen 500 mg tablet (Mapap 500 mg PO PRN 12/19/13 08/16/23 History Extra Strength) fluticasone propionate 50 2 spry NS DAILY PRN 12/19/13 08/16/23 History mcg/actuation nasal spray,suspension (Flonase) latanoprost 0.005 % eye drops 1 drp ophthalmic (eye) DIRECTED 12/19/13 08/16/23 History (Xalatan) aspirin 81 mg chewable tablet 81 mg CH DAILY ##30 09/18/16 08/16/23 Rx Bacillus coagulans 10 billion cell cell PO 06/09/21 08/16/23 History capsule,delayed release (Probiotic (B. coagulans)) cod liver oil 1 cap PO DAILY 06/09/21 08/16/23 History conjugated estrogens 0.625 mg/gram 0.625 mg vaginal DAILY 06/09/21 08/16/23 History vaginal cream (Premarin) dicyclomine 10 mg capsule 10 mg PO QID PRN 06/09/21 08/16/23 History dicyclomine 10 mg capsule 10 mg PO QID PRN 06/09/21 08/16/23 History famotidine 20 mg tablet 20 mg PO BID 06/09/21 08/16/23 History triamcinolone acetonide 0.1 % 1 applic topical BID PRN 06/09/21 08/16/23 History topical cream amlodipine 5 mg tablet 5 mg PO DAILY 07/14/23 08/16/23 History pantoprazole 40 mg tablet,delayed 40 mg PO DAILY 07/14/23 08/16/23 History release (Protonix) atorvastatin 40 mg tablet 40 mg PO QPM #30 tabs 07/16/23 08/16/23 Rx Exam Narrative Exam Narrative: Constitutional The patient is sitting in chair/ lying in bed comfortable and cooperative during the interview. The patient is well groomed without acute distress and has average body habitus/is obese/ is thin. HENMT: Head is atraumatic, normocephalic, no lymphadenopathy. Facial structures with normal appearance Eyes: Well aligned, intact external eye movement Neck: Normal ROM, no meningeal signs Neuro:alert and oriented to self, person, place, time and situation.Slight left arm and left leg drift remains , no overt weakness, able to stand up, good prehension, PERRLA, cranial nerve I to XII appears intact Chest:Chest is symmetrical and normal appearance Resp: Normal respiratory pattern, speaks in full sentences, unlabored breathing, clear lung bilaterally Cardio: regular rhythm, S1, S2, no murmur, telemetry sinusal rhythm HR 76, bilateral radial and dorsalis pedis pulses are positive, palpable GI: Abdomen is not distended, soft and non tender, bowel sounds are present : Negative Costovertebral angle tenderness, no bladder distension Back/spine/Pelvis: No back tenderness, normal alignment Extremities: strength 5/5 to bilateral lower and upper extremities to push and pull Psych: RASS 0, congruent mood and normal affect. Results Labs 07/15/23 06:25 07/15/23 06:25 Labs: Laboratory Results - last 24 hr 07/14/23 07/14/23 07/14/23 06:14 06:31 09:23 WBC 6.66 RBC 5.11 Hgb 14.7 Hct 44.6 MCV 87 MCH 28.8 MCHC 33.0 RDW 13.9 Plt Count 406 H MPV 9.5 Immature Gran % 0.2 Neutrophils % 49.1 Lymphocytes % 38.4 Monocytes % 8.7 Eosinophils % 2.7 Basophils % 0.9 Nucleated RBC % 0.0 Absolute Neutrophils 3.27 Absolute Lymphocytes 2.56 Absolute Monocytes 0.58 Absolute Eosinophils 0.18 Absolute Basophils 0.06 PT 10.6 Cancelled INR 1.1 Cancelled APTT 27.0 Sodium 140 Potassium 3.7 Chloride 102 Carbon Dioxide 29.9 Anion Gap 8.1 BUN 12 Creatinine 0.9 Est GFR (CKD-EPI 2020) 63.04 Glucose 100 Calcium 9.9 Magnesium 2.0 Total Bilirubin 0.6 AST 29 ALT 29 Alkaline Phosphatase 95 Troponin I < 50 < 50 Total Protein 7.9 Albumin 3.7 Triglycerides 61 Total Cholesterol 251 H LDL Cholesterol, Calc 152 H HDL Cholesterol 87 Last Vital Signs Temp 36.5 C 07/14/23 06:15 Pulse 82 07/14/23 10:31 Resp 12 07/14/23 10:31 BP 151/71 H 07/14/23 10:31 Pulse Ox 94 07/14/23 10:31 PAWSS Have you Been Recently Intoxicated or Drunk Within the Last 30 days?: No Have you Ever Experienced Previous Episodes of Alcohol Withdrawal?: No Have you ever Experienced Withdrawal Seizures?: No Have you ever Experienced Delirium Tremens(DT)s?: No Have you ever undergone Alcohol Rehabilitation Treatment (i.e, inpt ot outpatient treatment programs)?: No Have you ever Experienced Blackouts?: No Have you ever Combined Alcohol with other Downers within the last 90 days?: No Have you ever Combined Alcohol with any other Substance of Abuse during the last 90 days?: No Positive Blood Alcohol level on Presentation? [PCS.BAL]: No Evidence of Increased Autonomic Activity (i.e. HR>120, tremor, sweating, agitation, nausea)?: No Result: 0 Time Spent Time spent with Patient: 55-74 minutes Time was spent: preparing to see the patient(eg.review tests), obtaining and/or reviewing separately otained hiistory, ordering medications,tests, procedures, referring, communicating with other health long term acute care registered nurse, indepentently interpreting results, counseling the patient and care coordination
--- NOTE | 2023-07-14 14:07 | NUR.NOTE ---
1145: patient ate lunch Nursing Note:
[2023-07-14] MEDS: Enoxaparin 40 MG/0.4 ML SYR SC (18:29)
[2023-07-14] MEDS: Atorvastatin 40 MG TAB PO (18:29)
[2023-07-14] MEDS: Famotidine 20 MG TAB PO (20:54)
[2023-07-14] MEDS: Normal Saline Flush 10 ML SYR IVP (20:55)
[2023-07-14] MEDS: Latanoprost 0.005% 2.5 ML BTL OP (23:05)
[2023-07-14] MEDS: Docusate Sodium 100 MG CAP PO (23:06)
[2023-07-15 03:22] VITALS: BP 128/78; PULSE 60; RESP 18; TEMP 36.6; O2SAT 95
[2023-07-15 07:30] LABS: Abs Immature Grans 0.02 10^3/uL (0.0-0.06); Absolute Basophil Count 0.07 10^3/uL (0.0-0.2); Absolute Eosinophil Count 0.15 10^3/uL (0.0-0.7); Absolute Lymphocyte Count 2.97 10^3/uL (1.2-3.4); Absolute Monocyte Count 0.62 10^3/uL (0.1-0.8); Absolute Neutrophil Count 3.21 10^3/uL (1.2-6.7); Eosinophils % 2.1; HCT 41.9 % (36.0-46.0); HGB 14.1 g/dL (11.2-15.7); Immature Grans % 0.3; Lymphocytes % 42.2; MCH 29.4 pg (27.0-33.0); MCHC 33.7 % (32.0-36.0); MCV 87 fL (80-95); MPV 10.3 fL (8.0-11.0); Monocytes % 8.8; Neutrophils % 45.6; Platelet Count 329 10^3/uL (130-400); RDW 14.1 % (11.7-14.6); RDW-SD 45.3 fL; WBC 7.04 10^3/uL (4.4-10.8)
[2023-07-15 07:31] VITALS: BP 135/82; PULSE 58; RESP 17; TEMP 36.4; O2SAT 96
[2023-07-15] MEDS: Aspirin 81 MG CHEW CH (07:37)
[2023-07-15] MEDS: Normal Saline Flush 10 ML SYR IVP ×2 (07:37→20:40)
[2023-07-15] MEDS: Pantoprazole 40 MG TABCR PO (07:37)
[2023-07-15] MEDS: Famotidine 20 MG TAB PO ×2 (07:37→20:41)
--- NOTE | 2023-07-15 07:57 | IN_ITS ---
PT Notes Visit Reasons: Acute CVA Inpatient Physical Therapy Evaluation Date: 07/15/23 Referring Doctor: Dr. Arthur PT Orders: PT CONSULT: limited ability to ambulate Precautions: fall, standard Patient Profile/Admitting Diagnosis: Patient admitted for medical management following CVA. She presented to the ED yesterday after experiencing left-sided weakness and slurred speech. Social History/Home Situation: Patient lives in a private home with her , who is also admitted in acute care at this time. They are both independent at baseline, and have lots of family support. Bienvenido does not use an assistive device at baseline. Equipment Owned/DME: none Subjective: Bienvenido states that she's feeling better than yesterday. States that her strength is coming back, and she's now able to hold items with her left hand, which had been difficult yesterday. She admits to feeling light when she gets up to walk, but has been able to walk to the bathroom several times with nursing standing by. Denies history of falls. Objective: General Observation: Resting in bed with telemetry in place. IV in RUE. Mental Status: A&Ox3. Very pleasant and cooperative. Pain: chronic left knee pain, without instability ROM: Right Upper Extremity: WFL Left Upper Extremity: WFL Right Lower Extremity: WFL Left Lower Extremity: WFL Strength: Right Upper Extremity: Shoulder flexion 4/5. Biceps 4/5. Wrist extension 5/5. System Auditor is strong. Left Upper Extremity: Shoulder flexion 3+/5. Biceps 3+/5. Wrist extension 4/5. System Auditor diminished 50% vs right side. Right Lower Extremity: Hip flexion 5/5. Quads 5/5. Ankle DF 5/5. Left Lower Extremity: Hip flexion 5/5. Quads 5/5. Ankle DF 5/5. Bed Mobility/Transfers: supine-sit: independent sit-stand: supervision stand-sit: supervision Gait: Ambulates 25' with CGA, no assistive device. Demonstrates slow, cautious gait, and reaches for rodriguez as she passes. Balance: Static Sitting: normal Dynamic Sitting: normal Static Standing: good Dynamic Standing: fair 4-Position Balance Test: 0/4 Small MOLLY: 5 seconds (requires CGA) Partial Tandem: 0 seconds Full Tandem: 0 seconds Single Leg Stance: 0 seconds Coordination: rapid alternating movements of UE slightly diminished on left side vs right. Intact for LEs. Fine Motor: diminished accuracy on left vs right Special Tests: Mobility Limitations Standardized Measure [facility] 6 clicks Basic Mobility Inpatient Short Form: Raw Score: [21 CMS Score: 29% impairment Informed Consent/Education: Patient instructed in purpose of PT consult and plan of care. Assessment: Patient is am 83 year old female referred to physical therapy services with the diagnosis of limited ability to ambulate following acute CVA. Patient presents with clinical signs and symptoms consistent with diagnosis, as demonstrated by the following impairment level findings: 1. decreased balance 2. decreased strength LUE and LLE 3. decreased coordination Impairments are contributing to the following functional limitations: 1. unable to ambulate independently 2. decreased functional strength in LUE, limiting ADLs (holding cup) Patient is assessed as a Low 76653 complexity based on the following: History: as above. Complicating social factor of also currently in acute care. Examination: functional limitations as above Presentation: evolving due to acute CVA Decision Making: low complexity Goals: Goals X1 week 1. Supine-Sit : independent 2. Sit-Supine : independent 3. Sit-Stand : independent 4. Stand-Sit : independent 5. Bed-Chair : independent 6. Chair-Bed : independent 7. Gait : supervision with least restrictive device x 300' Plan of Care/Treatment Plan: 1-2x/day, 7 days/week x 1 week. Plan of care has been reviewed with the STEAM BOX OPERATOR providing the service under Physical Therapy direction. Initiate Physical Therapy intervention for strengthening, bed mobility, transfers, gait, stairs, balance training, use of assistive device. DISCHARGE RECOMMENDATIONS: Home with HHPT vs outpatient PT TREATMENT CODE/TIME: 2325-0648 ([id number]) Leisa Noriega, PT, DPT [facility] Please sign an return this page within 30 days if you agree with the above POC. Thank you! Physician Signature Date [facility] All Active Problems (Updated 07/14/23 @ 17:16 by Alix [place], MORTAR CARRIER) Discharge planning issues (Acute) On deep vein thrombosis (DVT) prophylaxis (Acute) Acute CVA (cerebrovascular accident) (Acute) Postmenopausal atrophic vaginitis (Acute) Elevated blood pressure reading (Acute) Medical History (Updated 07/14/23 @ 17:16 by Alix Carter APRN) Degenerative joint disease Goiter, nodular Malignant neoplasm of colon with rectum GERD (gastroesophageal reflux disease) CVA (cerebral vascular accident) 2017 COVID-19 TIA (transient ischemic attack) Surgical History (Updated 06/09/21 @ 10:20 by Shelby Florez MD) History of cholecystectomy H/O partial resection of colon H/O total hysterectomy 2009
[2023-07-15 08:02] LABS: Hemoglobin A1C 5.2 % (<5.7)
[2023-07-15 08:05] LABS: Anion Gap 7.8 mmol/L (3-11); BUN 17 mg/dL (7-18); CO2 25.2 mmol/L (21.0-32.0); CREATININE 0.8 mg/dL (0.55-1.02); Calcium 9.3 mg/dL (8.5-10.1); Calculated LDL 132 mg/dL (<100); Chloride 105 mmol/L (98-107); Cholesterol 221 mg/dL (<200); Estimated GFR 72.61 (mL/min/1.73m2); Glucose 86 mg/dL (74-106); HDL Cholesterol 76 mg/dL (40-60); Potassium 3.5 mmol/L (3.5-5.1); Sodium 138 mmol/L (136-145); TSH 1.68 uIU/mL (0.36-3.74); Triglyceride 68 mg/dL (<150); Vitamin B12 501 pg/mL (193-986)
--- NOTE | 2023-07-15 10:04 | PDOC.CMIN ---
Date of service: 07/15/23 Time of Service: 10:04 Care Management Initial Assmt Initial Assessment REASON FOR HOSPITALIZATION:: Acute CVA PREVIOUS FUNCTIONAL STATUS/SOCIAL/FAMILY SUPPORTS:: Bienvenido resides in [place], with her Rasheed. The couple have a supportive family locally, daughter Federica in [place], son Brad in [place] as well as grandchildren locally. CURRENT FUNCTIONAL STATUS:: Bienvenido was sitting up in the chair, in her robe, visiting with family. CM will meet with Bienvenido alone to discuss SDoH assessment items. Awaiting further workup to determine plan of care. ADVANCE DIRECTIVES:: None on file. Has patient been provided with info about the portal/API?: Yes Did the patient sign up for the portal?: No CODE STATUS:: DNR/DNI INSURANCE COVERAGE / FINANCIAL ISSUES:: Medicare, ACO CURRENT HOME/COMMUNITY SERVICES/EQUIPMENT:: None, currently. PRIMARY CARE PHYSICIAN:: Eulogio Ordaz POTENTIAL DISCHARGE NEEDS:: Follow up appointments, MRI, ECHO, PT and OT consults PATIENT/FAMILY EDUCATION NEEDS:: Review discharge instructions, discuss Ask Me Three. ANTICIPATED BARRIERS TO DISCHARGE:: MRI, ECHO availability. TRANSPORTATION:: Private vehicle with family. PLAN:: Anticipate Bienvenido will return home with new orders for home health PT-vs-O/P PT. She will follow up with community providers and transport via private vehicle with family. PFSH All Active Problems (Updated 07/14/23 @ 17:16 by Alix Carter APRN) Discharge planning issues (Acute) On deep vein thrombosis (DVT) prophylaxis (Acute) Acute CVA (cerebrovascular accident) (Acute) Postmenopausal atrophic vaginitis (Acute) Elevated blood pressure reading (Acute) Medical History (Updated 07/14/23 @ 17:16 by Alix Carter APRN) Degenerative joint disease Goiter, nodular Malignant neoplasm of colon with rectum GERD (gastroesophageal reflux disease) CVA (cerebral vascular accident) 2017 COVID-19 TIA (transient ischemic attack) Surgical History (Updated 06/09/21 @ 10:20 by Shelby Florez MD) History of cholecystectomy H/O partial resection of colon H/O total hysterectomy 2009 Family History (Updated 07/14/23 @ 18:41 by Alix Carter APRN) Brother Cancer Father Cancer Sister Stroke Brother Heart disease Social History (Updated 06/09/21 @ 09:41 by Susana Silva) Smoking/Tobacco Use Status: Never Smoking risk assessment performed?: Yes Alcohol Intake: current Alcohol Intake frequency: holidays/special occasions only Drug use: Never Substance use type: does not use Household members: spouse Housing: house Communication Needs: Corrective Lenses Education Level: high school Do you need help understanding health information?: Rarely 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 Pets and animals: No Sexually active: No Do you think of yourself as: straight/heterosexual Current gender identity: female What is your relationship status?: Panel score (0-1 are the most socially isolated patients): 1 Special carla needs: No Agree to transfusion: Yes Seatbelt use: always Helmet use: Yes Drive intox or ride w/intox local company refrigerated truck driver: No Working smoke detector in home: Yes Fire extinguisher in home: Yes Carbon monox detector in home: Yes Firearms in home: Yes Do you feel safe in your relationship?: Yes Female Reproductive History Menstrual Age of Menarche: 12 Duration of menses: 3-5 days Menopause type: natural Date of menopause: 07/09/87 History History 4 Para Hx # Term Pregnancies 4 Multiple births Hx # Pregnancies Ectopic pregnancies AB induced Hx Number of Living Children 4 AB spontaneous SDOH(Care Management) Screening Will the Patient Participate in the Screening?: Yes Do you worry about having a steady place to live?: yes Problems where you live: no known problems In the past 12 months, have you had to go without electric, gas, oil or water in your home?: no Have you or anyone in your house had to go without enough food to eat?: no Has lack of transportation kept you from medical appointments or from doing things needed for daily living?: yes Has anyone in your support network made you feel unsafe for any reason?: no Health Related Social Needs Health related social needs: housing instability, housed, with risk of homelessness(Z59.811) and transportation insecurity(Z59.82)
[2023-07-15 12:06] VITALS: BP 164/92; PULSE 70; RESP 17; TEMP 36.4; O2SAT 98
[2023-07-15 15:14] VITALS: BP 119/80; PULSE 62; RESP 17; TEMP 36.5; O2SAT 97
--- NOTE | 2023-07-15 16:12 | PGE_ITS ---
Date of Service Date of service: 07/15/23 Time of Service: 16:13 Assessment and Plan Assessment and plan (1) Acute CVA (cerebrovascular accident): Status: Acute Assessment and plan: CT no acute finding Head and neck CTA: No large vessel occlusion, significant stenosis . No acute intracranial process. No occlusion or significant stenosis on the CT angiography of the neck. 4. 3.8 x 3.9 x 5.7 cm heterogeneous left thyroid mass. Nonemergent thyroid ultrasound is recommended for further evaluation. Resolving left upper and lower ext. weakness, feels essentially at baseline Residual left facial droop not appreciated, smile is normal [place] [facility] [place]SA 81 mg po daily, no plavix at this time Neuro consult on Sunday MRI and Echo with bubble study pending on Sunday labs: lipid panel, Hgb A1C, TSH, B12 level lipitor 40 mg po today and evaluate if continuation and or adjustment needed PT and OT following Speech consult completed and cleared for regular diet (2) Elevated blood pressure reading: Status: Acute Assessment and plan: Blood pressures have been well-controlled off of her amlodipine Permissive hypertension to SBP 190 Continue holding amlodipine (3) On deep vein thrombosis (DVT) prophylaxis: Status: Acute Assessment and plan: started on Enoxaparin SC (4) Discharge planning issues: Status: Acute Assessment and plan: CM to f/u with increase needs regarding discharge.Spouse is also hospitalized at this time Palliative care consult ordered discussed with Dr. Arthur Subjective Subjective Interval history since last seen: Patient voicing no complaints states she is walking unassisted feels like she has regained the strength in her left side. She is eating and drinking without difficulty no cough chest pain shortness of breath she states that her bowels and bladder are functioning well Exam Narrative Exam Narrative: Well-appearing female of stated age in no acute distress sitting up in the chair her skin is pink warm dry well-perfused she is in no acute distress vital signs are stable head is atraumatic facial features are symmetrical eyes nonicteric noninjected EOMs intact oral mucosas moist cardiovascular regular rate and rhythm her respirations are even and unlabored breath sounds are clear neck with full range of motion no JVD abdomen benign moves extremities without edema skin with no rashes or lesions she has equal strength in her bilateral upper and lower extremities. Cranial nerves II through XII grossly intact Objective Last Vital Signs Temp 36.5 C 07/15/23 15:14 Pulse 62 07/15/23 15:14 Resp 17 07/15/23 15:14 BP 119/80 07/15/23 15:14 Pulse Ox 97 07/15/23 15:14 Laboratory Results - last 24 hr 07/15/23 06:25 WBC 7.04 RBC 4.80 Hgb 14.1 Hct 41.9 MCV 87 MCH 29.4 MCHC 33.7 RDW 14.1 Plt Count 329 MPV 10.3 Immature Gran % 0.3 Neutrophils % 45.6 Lymphocytes % 42.2 Monocytes % 8.8 Eosinophils % 2.1 Basophils % 1.0 Nucleated RBC % 0.0 Absolute Neutrophils 3.21 Absolute Lymphocytes 2.97 Absolute Monocytes 0.62 Absolute Eosinophils 0.15 Absolute Basophils 0.07 Sodium 138 Potassium 3.5 Chloride 105 Carbon Dioxide 25.2 Anion Gap 7.8 BUN 17 Creatinine 0.8 Est GFR (CKD-EPI 2020) 72.61 Glucose 86 Hemoglobin A1c 5.2 Calcium 9.3 Magnesium 2.0 Triglycerides 68 Total Cholesterol 221 H LDL Cholesterol, Calc 132 H HDL Cholesterol 76 Vitamin B12 501 TSH 1.68 PAWSS Have you Been Recently Intoxicated or Drunk Within the Last 30 days?: No Have you Ever Experienced Previous Episodes of Alcohol Withdrawal?: No Have you ever Experienced Withdrawal Seizures?: No Have you ever Experienced Delirium Tremens(DT)s?: No Have you ever undergone Alcohol Rehabilitation Treatment (i.e, inpt ot outpatient treatment programs)?: No Have you ever Experienced Blackouts?: No Have you ever Combined Alcohol with other Downers within the last 90 days?: No Have you ever Combined Alcohol with any other Substance of Abuse during the last 90 days?: No Positive Blood Alcohol level on Presentation? [PCS.BAL]: No Evidence of Increased Autonomic Activity (i.e. HR>120, tremor, sweating, agitation, nausea)?: No Result: 0 Time Spent with Patient Time Spent with Patient: 35-49 minutes Time was spent: preparing to see the patient(eg.review tests), obtaining and/or reviewing separately otained hiistory, ordering medications,tests, procedures, indepentently interpreting results and counseling the patient
[2023-07-15] MEDS: Enoxaparin 40 MG/0.4 ML SYR SC (17:56)
[2023-07-15 20:07] VITALS: BP 130/78; PULSE 75; RESP 17; TEMP 36.6; O2SAT 95
[2023-07-15] MEDS: Latanoprost 0.005% 2.5 ML BTL OP (20:40)
[2023-07-15] MEDS: Atorvastatin 40 MG TAB PO (20:41)
[2023-07-15 22:06] VITALS: BP 149/85; PULSE 69; RESP 17; TEMP 36.4; O2SAT 96
[2023-07-15] MEDS: Acetaminophen 325 MG TAB PO (23:39)
[2023-07-16 04:00] VITALS: BP 148/77; PULSE 63; RESP 17; TEMP 36.1; O2SAT 98
[2023-07-16 07:29] VITALS: BP 149/82; PULSE 61; RESP 22; TEMP 36.4; O2SAT 95
--- NOTE | 2023-07-16 08:00 | DI.MRI_ITS ---
Exam(s) MR BRAIN WO EXAM: MR BRAIN WO CLINICAL HISTORY: suspected acute CVA TECHNIQUE: Multiplanar multisequence MRI of the brain was performed. COMPARISON: MR MRI - BRAIN WO CONTRAST from 09/18/[address] BRAIN NECK CTA from 07/14/2023 FINDINGS: VENTRICLES AND EXTRA AXIAL SPACES: Normal in size and morphology for the patient's age. MIDLINE SHIFT: None. CEREBRAL PARENCHYMA: There is a 8 mm area of restricted diffusion in the right thalamus. The finding s are consistent with an infarct. No space-occupying lesion identified. There are foci of hyperinten se signal seen in the FLAIR and T2 weighted images in the white matter consistent with small vessel i schemic disease. HEMORRHAGE: None. BRAINSTEM/CEREBELLUM: Normal. CALVARIUM: Normal. VISUALIZED PARANASAL SINUSES/MASTOIDS:Clear. [place]: Normal flow void. PITUITARY GLAND: Unremarkable. OTHER FINDINGS: None. IMPRESSION: 1. Acute subacute infarct involving the right thalamus. 2. 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 DATA REPOSITORY:
[2023-07-16] MEDS: Aspirin 81 MG CHEW CH (08:04)
[2023-07-16] MEDS: Pantoprazole 40 MG TABCR PO (08:04)
[2023-07-16] MEDS: Famotidine 20 MG TAB PO (08:04)
[2023-07-16] MEDS: Normal Saline Flush 10 ML SYR IVP (08:05)
[2023-07-16] MEDS: Dicyclomine 10 MG CAP PO (08:08)
--- NOTE | 2023-07-16 08:49 | W.SPSTE ---
Date of service: 07/16/23 Time of Service: 08:20 Subjective Clinical (Bedside) Swallow Evaluation Speech Language Pathology Referred by: Dr. Arthur Referral Type: Clinical Swallow Evaluation Reason for Referral/HPI: Bienvenido Walters is an 83 yo female adm to [facility] 07/14/23 with L facial droop, slurred speech, and left arm weakness. She is being worked up for CVA, with pending MRI/echo. CT of the head was unremarkable. Since admission, symptoms have grossly resolved. Bienvenido and her son Brad report last evening speech was still slightly slurred, but not evident today. DEPOSITION OPERATOR IMPRESSIONS & RECOMMENDATIONS: Bienvenido presents with within normal limit swallow function, without evidence of dysphagia. Her speech is fluent, clear, and precise. There is no evidence of dysarthria/apraxia or aphasia within testing today. No changes in cognition noted or endorsed by patient/son. No further inpatient DEPOSITION OPERATOR needs identified. FURTHER DEPOSITION OPERATOR SERVICES: No further DEPOSITION OPERATOR services indicated Diet Recommendations: L7 Regular Solids, Thin Liquids SUBJECTIVE: Patient received alert/awake, oriented x3, agreeable to evaluation Pain Reported? None Baseline Swallow Function: Patient denies swallowing difficulty prior to admission and eats a regular diet at baseline. PO Trials Assessed: IDDSI 0 Thin Liquids IDDSI 7 Regular Solid Oral Mechanism Examination: Dentition is WFL. Oral mucosa is moist/pink. Cranial Nerve Assessment: CN V ? Trigeminal Facial Sensation WNL Jaw Strength/ROM WNL ?WNL CN VII- Facial WNL labial ROM, strength, coordination. WNL lingual sensation WNL CN IX ? Glossopharyngeal WNL palatal elevation with phonation. No evidence of nasal emissions WNL CN X ? Vagus WNL Vocal quality and volume. Strong/sharp volitional cough WNL CX XII ? Hypoglossal WNL lingual ROM, strength, coordination WNL Oral Phase Findings: WFL Pharyngeal Phase Findings: WFL ? [place] Swallow Protocol Results: PASS Speech/Language Screening: Alternating Motion Sequences: WNL Sequential Motion Sequences: WNL Cookie Theft Picture Description: WNL; provided oral narrative with intact syntax, grammar, word retrieval Orientation: Oriented to self, place, situation, date/month/year/day ??? ASSESSMENT: Further DEPOSITION OPERATOR Services not indicated. Recommendation at Discharge: No DEPOSITION OPERATOR services indicated Recommendations: ? SOLIDS: 7-Regular Solids LIQUIDS: 0-Thin Liquids MEDICATIONS: Whole with 0-Thin Liquids Level of Assistance/Supervision: Independent Education Provided to: Patient and patient's sonBrad Topics Addressed: Role of DEPOSITION OPERATOR, rationale for assessment, assessment findings PLAN: Evaluation only - no needs DEPOSITION OPERATOR CPT Code: 56215 Clinical Swallowing [id number] TOTAL TIME: 15 Minutes, 8:20-8:35 Coding CPT Codes EVALUATE SWALLOWING FUNCTION - 00959 ([id number]) Additional Codes Date of Service (16260) Date of service: 07/16/23
--- NOTE | 2023-07-16 10:04 | W.PALLCONSUL ---
Date of service: 07/16/23 Time of Service: 10:04 History of Present Illness History of Present Illness Chief Complaint: Wants to complete colst Narrative: Bienvenido is an 83-year-old woman who was hospitalized for an acute CVA. She states that at this time it is pretty much resolved, although she still does have some hand and left foot weakness. She is anxious to get home. I was asked to speak with Bienvenido regarding her wishes regarding CPR etc. When she was admitted to the hospital she stated that she was a DNR DNI. I am here today to complete a COLST form. Bienvenido is a sarah 83-year-old woman who has been quite healthy. She lives with her of 65 years and does have a lot of help with family. The last few weeks have been extremely difficult because her was requiring considerably more help. She finally could no longer do this and ended up calling the ambulance. He has been hospitalized for the fact past several days. She is hoping to get home soon. She does feel that she will be able to handle things if she could have home health and physical therapy to help him to be stronger. She was very clear in her wishes. She stated that she does not want CPR. She does not want intubation. She does not want a feeding tube. She is willing to have a trial of IV fluids and antibiotics. Assessment and Plan Assessment and plan (1) Advanced care planning/counseling discussion: Status: Acute Assessment and plan: Bienvenido's goal is to return home as soon as possible with her . She does feel that she needs to have more help at home and her son is going to stay overnight for a few nights. She is hopeful that home health and PT will help with getting him stronger. She has learned a lesson from this. She knows that she has been under a lot of stress caring for her . She knows that it led to her illness. Her plan is to ask for help sooner and recognize the signs of stress in her cell. Regarding CODE STATUS she remains a DNR/DNI. She does not want a feeding tube. She is willing to have IV fluids and antibiotics for short time. I did give the original COLST form to Bienvenido and request that she put this on her refrigerator. Copies have also been sent to Dr. Alberto and the EMR Bienvenido is a very sarah person. I very much enjoyed talking with her thank you very much for this consult Review of Systems Narrative: Presently she can still has weakness on her left side. It is gotten considerably better. She is very thankful for that. PFSH All Active Problems (Updated 07/16/23 @ 16:44 by Annalise Hay MD, DC) Advanced care planning/counseling discussion (Acute) Discharge planning issues (Acute) On deep vein thrombosis (DVT) prophylaxis (Acute) Acute CVA (cerebrovascular accident) (Acute) Postmenopausal atrophic vaginitis (Acute) Elevated blood pressure reading (Acute) Medical History (Updated 07/16/23 @ 16:44 by Annalise Hay MD, DC) Degenerative joint disease Goiter, nodular Malignant neoplasm of colon with rectum GERD (gastroesophageal reflux disease) CVA (cerebral vascular accident) 2017 COVID-19 TIA (transient ischemic attack) Surgical History (Updated 06/09/21 @ 10:20 by Shelby Florez MD) History of cholecystectomy H/O partial resection of colon H/O total hysterectomy 2009 Family History (Updated 07/14/23 @ 18:41 by Alix Carter APRN) Brother Cancer Father Cancer Sister Stroke Brother Heart disease Social History (Updated 06/09/21 @ 09:41 by Susana Silva) Smoking/Tobacco Use Status: Never Smoking risk assessment performed?: Yes Alcohol Intake: current Alcohol Intake frequency: holidays/special occasions only Drug use: Never Substance use type: does not use Household members: spouse Housing: house Communication Needs: Corrective Lenses Education Level: high school Do you need help understanding health information?: Rarely 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 Pets and animals: No Sexually active: No Do you think of yourself as: straight/heterosexual Current gender identity: female What is your relationship status?: Panel score (0-1 are the most socially isolated patients): 1 Special carla needs: No Agree to transfusion: Yes Seatbelt use: always Helmet use: Yes Drive intox or ride w/intox team otr truck driver: No Working smoke detector in home: Yes Fire extinguisher in home: Yes Carbon monox detector in home: Yes Firearms in home: Yes Do you feel safe in your relationship?: Yes Female Reproductive History Menstrual Age of Menarche: 12 Duration of menses: 3-5 days Menopause type: natural Date of menopause: 07/09/87 History History 4 Para Hx # Term Pregnancies 4 Multiple births Hx # Pregnancies Ectopic pregnancies AB induced Hx Number of Living Children 4 AB spontaneous Exam Narrative Exam Narrative: Wonderful engaging 83-year-old woman. She is able to easily sit up in bed. She has a smile on her face most of the time were talking. Examination of her extremities show that the left historical guide strength is slightly reduced and plantarflexion on the left is also reduced. I did not check her reflexes. Muscle strength on the right was maintained. Cranial nerves II through XII were normal mood is excellent heart is regular. Lungs clear. Results Last Vital Signs Temp 97.5 F L 07/16/23 07:29 Pulse 61 07/16/23 07:29 Resp 22 07/16/23 07:29 BP 149/82 H 07/16/23 07:29 Pulse Ox 95 07/16/23 07:29 Labs 07/15/23 06:25 07/15/23 06:25 Imaging Additional studies: Plan is to have an echo and MRI today
--- NOTE | 2023-07-16 11:36 | PT.INTREAT ---
PT Notes Visit Reasons: Acute CVA Date of service: 07/15/23 Time of Service: 13:11 PT Notes Visit Reasons: Acute CVA Inpatient Physical Therapy [facility] Date: 07/16/23 PRECAUTIONS: Fall, standard, activity as tolerated. SUBJECTIVE: Pt visiting with spouse, sitting in recliner agreed to partricipating with therapy OBJECTIVE: Sitting in bedside chair. No supplemental O2. Agreeable to therapy. ? PAIN: none reported VITALS: closely monitored by nursing ? BED MOBILITY/TRANSFERS? Rolling L/R: not assessed Supine-sit: not assessed ? Sit-supine: not assessed ? Sit-stand: independent ? Stand-sit: independent ? Bed-Chair: independent ? Chair-bed: independent ? Therapeutic Exercises ([id number]): Direct one-on-one instruction in therapeutic exercises to develop strength, endurance, range of motion and flexibility. Ambulation ? Assistive Device: no AD ?1HHA on the right UE support. ? Weight bearing: full Assist: SBA ? Distance:? 300'x2 continuos without seated rest break? Deviation: minimal lateral sway to the right, minimal path deviation without UE support. Provided skilled instruction in proper exercise performance Provided skilled manual cues to facilitate proper muscle recruitment and/or form. ASSESSMENT:? Patient tolerates therapy well, waiting for echo this afternoon. PLAN: Continue global strengthening per plan of care until patient is medically cleared for discharge. TREATMENT CODE/TIME: 40810 x1, 15mins (11:05-11:20am)
--- NOTE | 2023-07-16 12:30 | DI.US_ITS ---
APPROVED REPORT EXAM: Comprehensive 2D, Doppler, and color-flow Echocardiogram Patient Location: In-Patient Room/Bed: [address] Shell Grinder: Ruben Dejesus RDCS (AE) Indications: CVA/TIA Echo Enhancing Agent Indication: Rule out Shunt Agent(s) / Amount(s) Used: Agitated Saline 30.0 cc Comments: Contrast study was performed with 3 IV injections of 10ccs of agitated normal saline, at st, with cough and post valsalva maneuver. Negative contrast study for shunt flow. Other Information Study Quality: Good Conclusion 1. Normal chamber sizes. 2. Normal LV and RV systolic functions 3. Anatomically normal valves.Mild MR,mild TR without phtn,trace AI 4. NO INTRACARDIAC SHUNT by color doppler or agitated saline contrast. 5. No pericardial effusion Wall motion Left Ventricle Left ventricular cavity is borderline small. The left ventricular systolic function is normal. The le ft ventricular ejection fraction is within the normal range. There is normal left ventricular wall th ickness. There is normal LV segmental wall motion. There is no ventricular septal defect visualized. LVEF is 55%. Right Ventricle The right ventricle is normal size. Right ventricular systolic function is grossly normal. Atria The left atrium size is normal. The right atrium size is normal. The interatrial septum is intact wit h no evidence for an atrial septal defect. Aortic Valve The aortic valve is normal in structure. Aortic valve is trileaflet. There is no aortic valvular sten osis. Trace aortic regurgitation. Mitral Valve The mitral valve is normal in structure. No evidence of mitral valve stenosis. Mild mitral regurgitat ion. Tricuspid Valve The tricuspid valve is normal in structure. There is no tricuspid valve stenosis. Mild tricuspid regu rgitation. The RVSP is 27.2 mmHg. Pulmonic Valve The pulmonary valve is normal in structure. There is no pulmonic valvular stenosis. There is no pulmo ramonita valvular regurgitation. Great Vessels The aortic root is normal in size. The ascending aorta is normal in size. Aortic arch is not well vis ualized. IVC is normal in size and collapses >50% with inspiration. Pericardium There is no pericardial effusion. 2D Dimensions IVSD d PLAX 0.55 cm F: 0.6-1.0 Ao Root d 2.93 cm F: 2.7 - 3.3 LVPW d PLAX 0.47 cm F: 0.6 - 1.0 Ao Asc Diam d 3.57 cm F: 2.3 - 3.1 LVID d PLAX 3.73 cm F: 3.8 - 5.2 LVDs 2.66 cm F: 2.2 - 3.5 LV EF Teichholz 56.0 % FS 28.66 % LV EDV (Teich) 59.3 mL LV ESV (Teich) 26.1 mL Stroke Vol Index (Teich) 21.42 M-Mode TAPSE 2.20 cm (M/F) >1.7 Auto EF LV EDV A4C 67.4 mL LV EDV A2C 51.3 mL LV EDV BP 58.3 mL LV ESV A4C 31.4 mL LV ESV A2C 22.5 mL LV ESV BP 26.5 mL LVEF(%) A4C 53.5 % LVEF(%) A2C 56.2 % LVEF(%) BP 54.5 % LV SV A4C 36.1 ml LV SV A2C 28.8 ml LV SV BP 31.8 ml LV CO A4C 2.6 L/min LV CO A2C 2.0 L/min LV CO BP 2.3 L/min HR A4C 71.29 BPM HR A2C 69.10 BPM LV EDV Index (BP) LA Volume LA Length A4C 2.8 cm LA Length A2C 4.2 cm LA Area A4C s 7.13 cm2 LA Area A2C s 8.38 cm2 LA Vol A4C A-L 15.68 mL LA Vol A2C A-L 14.34 mL LA Vol Biplane A-L 18.4 mL LA Vol/BSA A4C A-L LA Vol/BSA A2C A-L LA Vol/BSA BP A-L 11.9 mL/m2 LA Vol A4C MOD 14.5 mL LA Vol A2C MOD 13.8 mL LA Vol BP MOD 17.3 mL RA Volume RA Area A4C 6.9 cm2 RA ESV A4C (A-L) 8.4mL RA Vol/BSA A4C A-L RA Length A4C 4.9 cm RA ESV A4C (MOD) 8.1mL LV Diastology MV E' medial 0.060 (>0.07 m/s) MV E Vmax 0.67 (0.4-1.3 m/s) MV E/E' MED 11.26 (<14) MV A Vmax 1.05 (0.4-1.3 m/s) MV E' lateral 0.063 (>0.1 m/s) E/A Ratio 0.6 MV E/E' LAT 10.68 (<14) MV E' Average 0.061 m/s MV E/E'(average) 10.96 Aortic Valve AoV Vmax 1.60 m/s LVOT Vmax 1.06 m/s AoV Peak Grad 10.2 mmHg LVOT Peak Grad 4.5 mmHg AoV Area (Vmax) 2.01 cm2 LVOT VTI 0.228 m AoV VTI 0.312 m LVOT Mean Grad 2.6 mmHg AoV Mean Shaggy. 1.09 m/s LVOT SV 69.02 mL AoV Mean Grad 5.4 mmHg LVOT Diam s 1.95 cm AoV Area (VTI) 2.21 cm2 Velocity Ratio 0.66 Pulmonary Valve RVOT Vmax 0.58 m/s RVOT Peak Gr. 1.3 mmHg RVOT VTI 0.078 m RVOT Mean Gr. 0.8 mmHg Tricuspid Valve RA Pressure 3.00 mmHg TR Vmax 2.46 m/s TR Peak Grad 24.2 mmHg RVSP (TR) 27.2 mmHg
--- NOTE | 2023-07-16 15:05 | PT.INTREAT ---
PT Notes Visit Reasons: Acute CVA Inpatient Physical Therapy Treatment Note [facility] Date: 07/16/23 PRECAUTIONS: Fall, standard, activity as tolerated. SUBJECTIVE: Patient verbalized that she almost feels at baseline but aware that her L arm is not able to go up as high as the R side. Safe about going home this afternoon. happy that son Jose Antonio will be with them for a limited time as thye both recover. Agreeable with PT and then OP PT. OBJECTIVE: Standing by her door whne PT arrived. Demetrius Brady present throughout session. ? PAIN: None reported VITALS: closely monitored by nursing; no symptoms throughout session ? BED MOBILITY/TRANSFERS: Minimal cueing provided for use of B hands as needed for support, movement sequence, Ad management, and and posture to reduce fall risk and minimize pain report? Rolling L/R: independent Supine-sit: independent ? Sit-supine: independent? Sit-stand: independent ? Stand-sit: independent ? Bed-Chair: independent ? Chair-bed: independent ? GAIT:? Assistive Device: None ? Weight bearing: FWB Assist: stand by assist ? Distance:? 300 feet ? Deviation: Minimal lateral sway to the right. Decreased gait speed. Minimal path deviation. Decreased L UE swing. Skilled Cueing: Minimal cueing needed for straight plane ambulation and safe hallway navigation for safety. ASSESSMENT:? Does not need an assistive device to [place] [facility] [place] this afternoon. Patient did manifest some mild path deviation, decreased gait speed, and decreased arm swing on the L during the walk. She will benefit from PT services for home safety evaluation, continued mobility progression to improve quality/safety of gait, and for balance retraining. PLAN: Continue with global strengthening, balance retraining, and functional mobility training to improve quality of gait and reduce fall risk. TREATMENT CODE/TIME: 52978 x 26 minutes for 1 unit beginning at 15:05 PM.
--- NOTE | 2023-07-16 15:49 | DSE_ITS ---
Date of service: 07/16/23 Time of Service: 15:49 DS: Diagnosis Discharge Diagnosis (1) Acute CVA (cerebrovascular accident): Status: Acute (2) Elevated blood pressure reading: Status: Acute Discharge Plan Disposition Patient Disposition: Home W/Home Health Services Condition: Stable Discharge Details Reason For Visit: Acute CVA Admit Date/Time: 07/14/23 10:08 Admit Provider: Thelma Arthur Attending Provider: Thelma Arthur Primary Care Provider: Eulogio Ordaz Hospital Course Hospital Course: This is an 83 years old female patient with a past medical history of GERD, hypertension on amlodipine, glaucoma presented to the ED at [facility] for evaluation of left sided weakness and slurred speech. During the night, the patient reported waking up to void but still felt that her left arm was still weak, and then developed a sensation of some left foot weakness as well. When speaking to her her son, he also mentioned feeling that her speech was slurred on the phone. On arrival to the ED the patient verbalized ongoing left-sided upper and lower extremity weakness but felt that her slurred speech was resolved. In the emergency room, the provider noted that the patient had a NIH stroke scale of 3-4 most likely from an acute CVA. Head and neck CT were obtained and showed no acute finding except for a thyroid mass that can be investigated outpatient. Per neurology consult with [facility] was obtained and only recommended aspirin 81 mg po daily.The hospitalist was consulted and accepted the patient as an inpatient with telemetry on the medical-surgical unit. MRI showed Acute vs subacute infarct involving the right thalamus. Her echocardiogram did not show an intracardiac shunt. She had a preserved LVEF of 55%, normal appearing valves, normal size LA and RA. Her telemetry did not reveal any arrhythmias while in-house. The patient was evaluated by Dr Farris of Neurology, who recommended continuation of aspirin 81 mg PO daily in addition to atorvastatin 40 mg PO qpm. The patient had not failed outpatient aspirin as she had been off of it for 6 months prior to this event. The patient declined extended cardiac monitoring at the time of discharge, but will follow up about it with Dr Farris. She is being discharged home with home health nursing, PT, and OT. Home Meds and New Rx's Prescriptions: New atorvastatin 40 mg Tablet 40 mg PO QPM Qty: 30 0RF Continued famotidine 20 mg tablet 20 mg PO BID dicyclomine 10 mg capsule 10 mg PO QID PRN Patient Comments: I TAKE IT ONCE OR TWICE A DAY FOR MY CRAMPY STOMACH Probiotic (B. coagulans) 10 billion cell capsule,delayed release(DR/EC) PO Premarin 0.625 mg/gram cream 0.625 mg vaginal DAILY Patient Comments: pt uses 1-2 times a week Rx Instructions: off 5 days; repeat cycle triamcinolone acetonide 0.1 % cream 1 applic topical BID PRN Patient Comments: pt uses around vagina cod liver oil Capsule 1 cap PO DAILY latanoprost [Xalatan] 2.5 ML drops 1 drp Ophthalmic DIRECTED acetaminophen [Mapap Extra Strength] 500 MG tablet 500 mg PO PRN fluticasone propionate [Flonase] 16 GM spray,suspension 2 spry NS DAILY PRN dicyclomine 10 mg capsule 10 mg PO QID PRN Patient Comments: pt states she uses it 2-3 times a week aspirin 81 MG tablet,chewable 81 mg CH DAILY Qty: 30 0RF amlodipine 5 mg tablet 5 mg PO DAILY Patient Comments: TAKE ONE TABLET BY MOUTH EVERY DAY pantoprazole [Protonix] 40 mg tablet,delayed release (DR/EC) 40 mg PO DAILY Patient Comments: Take 1 tablet by mouth once a day TO REPLACE PRILOSEC Discharge Instructions Instructions: Ischemic Stroke (DC) Additional Instructions: Resume taking aspirin in addition to atorvastatin. Follow up with neurology in 4-6 weeks. Follow up with your PCP in 1-2 weeks. Return to the hospital with any new neurologic deficits, with any fever, bleeding, Chest pain, or shortness of breath. Stand Alone Forms: Nursing Discharge Form Referrals: Eulogio Ordaz PA [Primary Care Provider] - (Please call and make an Appointment in the next 2 weeks [phone]) Molly Farris MD [ [facility] STAFF PHYSICIAN] - (Please call [phone] and make a follow up appointment ) Activity:: Activity as Tolerated Equipment/Supplies:: No Equipment Needed Diet:: As Tolerated Discharge Orders Discharge Orders: Discharge Order (Routine); Ordered 07/16/23 Ordered By: Lelia Doran Discharge Data Discharge Date/Time-TO BE ENTERED AT DEPARTURE: 07/16/23 16:50 DS: Summary Time Spent with Patient providing and/or coordinating discharge services: Greater than 30 minutes Status at Discharge Functional status at discharge: independent ambulation Overall status at discharge: patient is progressing back to baseline Mental Status: mental status grossly normal Speech and Movement: speech and movement normal Mood: congruent mood Affect: normal affect Quality:SDOH Health Related Social Needs: Health related social needs risk of homeless, transpo insecurity Exam Narrative Exam Narrative: Well-appearing female of stated age in no acute distress sitting up in the chair her skin is pink warm dry well-perfused she is in no acute distress vital signs are stable head is atraumatic facial features are symmetrical eyes nonicteric noninjected EOMs intact oral mucosas moist cardiovascular regular rate and rhythm her respirations are even and unlabored breath sounds are clear neck with full range of motion no JVD abdomen benign moves extremities without edema skin with no rashes or lesions she has equal strength in her bilateral upper and lower extremities. Cranial nerves II through XII grossly intact Psych Mental Status: mental status grossly normal Speech and Movement: speech and movement normal Mood: congruent mood Affect: normal affect DS: Data Vitals/I&O Vitals and I&O: Vital Signs Temperature 36.4 C L 07/16/23 07:29 Temperature Source Tympanic 07/16/23 07:29 Pulse 61 07/16/23 07:29 Pulse Rhythm Regular 07/16/23 08:58 Pulse 66 07/14/23 14:40 Respiratory Rate 22 07/16/23 07:29 Respiratory Effort Normal, Non-Labored 07/16/23 08:58 Respiratory Depth Normal 07/16/23 08:58 Respiratory Pattern Normal 07/16/23 08:58 Blood Pressure 149/82 H 07/16/23 07:29 Blood Pressure Mean 77 07/14/23 14:00 Blood Pressure Position Sitting 07/14/23 06:15 Pulse Oximetry 95 07/16/23 07:29 Oxygen Delivery Method Room Air 07/16/23 07:29 Oxygen Flow Rate 0 07/16/23 07:29 Pain Level 0 07/16/23 07:29 Comment Nurse notified. 07/15/23 12:06 Intake & Output 07/15/23 07/16/23 07/16/23 23:59 11:59 23:59 Intake Total 750 / 1340 Output Total 750 / 1300 400 / 400 Balance 0 / 40 -400 / -400 Intake: Oral 750 / 1340 Output: Urine 750 / 1300 400 / 400 Other: Urine Color Yellow Yellow Urine Appearance Cloudy Clear Urine Odor Normal Normal Voiding Methods Toilet Toilet Imaging MRI - head: Radiologist's impression: Exam(s) MR BRAIN WO EXAM: MR BRAIN WO CLINICAL HISTORY: suspected acute CVA TECHNIQUE: Multiplanar multisequence MRI of the brain was performed. COMPARISON: MR MRI - BRAIN WO CONTRAST from 09/18/[address] BRAIN NECK CTA from 07/14/2023 FINDINGS: VENTRICLES AND EXTRA AXIAL SPACES: Normal in size and morphology for the patient's age. MIDLINE SHIFT: None. CEREBRAL PARENCHYMA: There is a 8 mm area of restricted diffusion in the right thalamus. The findings are consistent with an infarct. No space-occupying lesion identified. There are foci of hyperintense signal seen in the FLAIR and T2 weighted images in the white matter consistent with small vessel ischemic disease. HEMORRHAGE: None. BRAINSTEM/CEREBELLUM: Normal. CALVARIUM: Normal. VISUALIZED PARANASAL SINUSES/MASTOIDS:Clear. MOAPA OF MCDANIEL: Normal flow void. PITUITARY GLAND: Unremarkable. OTHER FINDINGS: None. IMPRESSION: 1. Acute subacute infarct involving the right thalamus. 2. 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 Lab and Radiology Reports: Laboratory Results WBC 7.04 10^3/uL (4.4-10.8) 07/15/23 06:25 RBC 4.80 10^6/uL (3.93-5.22) 07/15/23 06:25 Hgb 14.1 g/dL (11.2-15.7) 07/15/23 06:25 Hct 41.9 % (36.0-46.0) 07/15/23 06:25 MCV 87 fL (80-95) 07/15/23 06:25 MCH 29.4 pg (27.0-33.0) 07/15/23 06:25 MCHC 33.7 % (32.0-36.0) 07/15/23 06:25 RDW 14.1 % (11.7-14.6) 07/15/23 06:25 Plt Count 329 10^3/uL (130-400) 07/15/23 06:25 MPV 10.3 fL (8.0-11.0) 07/15/23 06:25 Immature Gran % 0.3 07/15/23 06:25 Neutrophils % 45.6 07/15/23 06:25 Lymphocytes % 42.2 07/15/23 06:25 Monocytes % 8.8 07/15/23 06:25 Eosinophils % 2.1 07/15/23 06:25 Basophils % 1.0 07/15/23 06:25 Nucleated RBC % 0.0 % (0.0-0.3) 07/15/23 06:25 Absolute Neutrophils 3.21 10^3/uL (1.2-6.7) 07/15/23 06:25 Absolute Lymphocytes 2.97 10^3/uL (1.2-3.4) 07/15/23 06:25 Absolute Monocytes 0.62 10^3/uL (0.1-0.8) 07/15/23 06:25 Absolute Eosinophils 0.15 10^3/uL (0.0-0.7) 07/15/23 06:25 Absolute Basophils 0.07 10^3/uL (0.0-0.2) 07/15/23 06:25 PT Cancelled 07/14/23 06:31 INR Cancelled 07/14/23 06:31 APTT 27.0 sec (23.6-32.8) 07/14/23 06:14 Sodium 138 mmol/L (136-145) 07/15/23 06:25 Potassium 3.5 mmol/L (3.5-5.1) 07/15/23 06:25 Chloride 105 mmol/L (98-107) 07/15/23 06:25 Carbon Dioxide 25.2 mmol/L (21.0-32.0) 07/15/23 06:25 Anion Gap 7.8 mmol/L (3-11) 07/15/23 06:25 BUN 17 mg/dL (7-18) 07/15/23 06:25 Creatinine 0.8 mg/dL (0.55-1.02) 07/15/23 06:25 Est GFR (CKD-EPI 2020) 72.61 (mL/min/1.73m2) 07/15/23 06:25 Glucose 86 mg/dL (74-106) 07/15/23 06:25 Hemoglobin A1c 5.2 % (<5.7) 07/15/23 06:25 Calcium 9.3 mg/dL (8.5-10.1) 07/15/23 06:25 Magnesium 2.0 mg/dL (1.8-2.4) 07/15/23 06:25 Total Bilirubin 0.6 mg/dL (0.2-1.0) 07/14/23 06:14 AST 29 U/L (15-37) 07/14/23 06:14 ALT 29 U/L (14-59) 07/14/23 06:14 Alkaline Phosphatase 95 U/L (46-116) 07/14/23 06:14 Troponin I < 50 ng/L (<or=60) 07/14/23 09:23 Total Protein 7.9 g/dL (6.4-8.2) 07/14/23 06:14 Albumin 3.7 g/dL (3.4-5.0) 07/14/23 06:14 Triglycerides 68 mg/dL (<150) 07/15/23 06:25 Total Cholesterol 221 mg/dL (<200) H 07/15/23 06:25 LDL Cholesterol, Calc 132 mg/dL (<100) H 07/15/23 06:25 HDL Cholesterol 76 mg/dL (40-60) 07/15/23 06:25 Vitamin B12 501 pg/mL (193-986) 07/15/23 06:25 TSH 1.68 uIU/mL (0.36-3.74) 07/15/23 06:25 PFSH All Active Problems (Updated 07/17/23 @ 00:05 by KERRI KHALIL) Ataxia of left upper extremity (Acute) Left hemiparesis (Acute) Advanced care planning/counseling discussion (Acute) Acute CVA (cerebrovascular accident) (Acute) Postmenopausal atrophic vaginitis (Acute) Elevated blood pressure reading (Acute) Medical History (Updated 07/17/23 @ 00:05 by KERRI KHALIL) Degenerative joint disease Goiter, nodular Malignant neoplasm of colon with rectum GERD (gastroesophageal reflux disease) CVA (cerebral vascular accident) 2017 COVID-19 TIA (transient ischemic attack) Surgical History (Updated 06/09/21 @ 10:20 by Shelby Florez MD) History of cholecystectomy H/O partial resection of colon H/O total hysterectomy 2009 Family History (Updated 07/14/23 @ 18:41 by Alix Carter APRN) Brother Cancer Father Cancer Sister Stroke Brother Heart disease Social History (Updated 06/09/21 @ 09:41 by Susana Silva) Smoking/Tobacco Use Status: Never Smoking risk assessment performed?: Yes Alcohol Intake: current Alcohol Intake frequency: holidays/special occasions only Drug use: Never Substance use type: does not use Household members: spouse Housing: house Communication Needs: Corrective Lenses Education Level: high school Do you need help understanding health information?: Rarely 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 Pets and animals: No Sexually active: No Do you think of yourself as: straight/heterosexual Current gender identity: female What is your relationship status?: Panel score (0-1 are the most socially isolated patients): 1 Special carla needs: No Agree to transfusion: Yes Seatbelt use: always Helmet use: Yes Drive intox or ride w/intox trolley coach driver: No Working smoke detector in home: Yes Fire extinguisher in home: Yes Carbon monox detector in home: Yes Firearms in home: Yes Do you feel safe in your relationship?: Yes Female Reproductive History Menstrual Age of Menarche: 12 Duration of menses: 3-5 days Menopause type: natural Date of menopause: 07/09/87 History History 4 Para Hx # Term Pregnancies 4 Multiple births Hx # Pregnancies Ectopic pregnancies AB induced Hx Number of Living Children 4 AB spontaneous Time Spent with Patient Time Spent with Patient: 45-69 minutes Time was spent: preparing to see the patient(eg.review tests), obtaining and/or reviewing separately otained hiistory, ordering medications,tests, procedures, referring, communicating with other health progressive care unit registered nurse, indepentently interpreting results, counseling the patient and care coordination
--- NOTE | 2023-07-16 15:57 | PDOC.HHF2F_ITS ---
Home Health Referral Home Health Orders Clinical synopsis of why skilled professionals are needed: cerebral vascular accident Medical diagnosis necessitation home health referral: home evaluation, gait stability and safety, home eval Registered Nurse: Check all that apply Instruct on new or changed medication(s)/assess compliance: Ordered (blood pressure monitoring, symptom monitoring) Assess for exacerbation of medical condition, instruct patient/caregivers on signs and symptoms to report for early detection: Ordered Physical Therapist: Check all that apply Increase strength & endurance for safe mobility at home: Ordered To design/establish home maintenance program: Ordered Fall reduction therapy program for patient with history of frequent falls: Ordered Home safety evaluation and teaching/gait training including stair management (if applicable): Ordered Occupational Therapist: Evaluate and treat for patient unable to perform ADL/IADL/self-care: Ordered Upper extremity strengthening, range and motion: Ordered (left upper) Home Bound Status Describe why leaving home would require a considerable and taxing effort: Requ ires frequent rest periods and Safety Concerns: describe Encounter Date and Reason: I certify that a FTF encounter for this patient was performed on July 16, 2023 and that such encounter was related to the primary reason the patient requires home health services. The encounter was conducted in the following manner: * By me as the certifying physician, COLOR DEPOSITING MACHINE TENDER, PA or * By an inpatient physician, COLOR DEPOSITING MACHINE TENDER or PA during an inpatient stay who communicated findings to me, Certification And Authentication I certify that I composed the above information based on my clinical judgment relating to this patient's medical condition and, if applicable, clinical findings communicated to me by the NPP or inpatient physician who performed the FTF encounter. Name of Provider that will be monitoring home health services: Eulogio Ordaz
--- NOTE | 2023-07-16 15:59 | NCONE_ITS ---
Date of service: 07/16/23 Time of Service: 15:59 Assessment and Plan Assessment and plan (1) Acute CVA (cerebrovascular accident): Status: Acute (2) Left hemiparesis: Status: Acute (3) Ataxia of left upper extremity: Status: Acute Assessment and plan: Ms. Walters is admitted with a R thalamic stroke manifested by L hemiparesis and hemiataxia with only very minimal residual symptoms. Etiology unclear, but likely due to small vessel disease though cardioembolic etiology remains a possibility. Work-up: -30 day monitoring tech (she defers at this time and would like to wait until later to have this done given significant stressors at this time) Medications: -aspirin 81mg daily for secondary stroke prevention, lifelong -atrovastatin 40mg daily for secondary stroke prevention, ADRs discussed Other: -Home health PT -FPC goals: Goal LDL <70. Goal SBP 120-140. Goal A1c <7. Follow-up in the neurology clinic in 4-6 weeks. History of Present Illness History of Present Illness Chief Complaint: stroke Narrative: Handedness: right. HPI: Ms. Bienvenido Walters is a an 83 year-old with hypertension, remote colon cancer, prior stroke in September 2016 (L centrum semiovale) manifested by R arm > foot weakness and numbness with full resolution for which she was placed on aspirin, glaucoma, GERD. Ms. Walters notes increased stress in the last 1month with of a family member and recent diagnosis of metastatic pancreatic cancer in her son-in-law. Then on 07/12/23 her was admitted to [facility] for breathing issues (he is still hospitalized). On the evening of 07/13/23, she noted a numbness and heaviness in her L arm but went to bed. Through the night, she got up several times noting continued symptoms that were still present in the am. She called her granddaughter who on arrival noted L face weakness and gait imbalance due to L leg weakness vs ataxia. Ms. Faria was admitted and underwent the work-up as below. She was started on ASA 81mg daily and atorvastatin 40mg upon admission . She had actually stopped her ASA about 6 months ago at the direction of her PCP[place] [facility] [place]APT due to her GERD. She is tolerating both well. Her symptoms have since essentially resolved though she notes some clumsiness in the left hand and leg. She has been recommended home health PT. Work-up: -CTH (07/14/23): No acute findings. I reviewed these images personally and this is my personal interpretation. -CTA head/neck (07/14/23): origin R CAR CHECKER. Thyroid mass noted. No significant vascular disease. I reviewed these images personally and this is my personal interpretation. -MRI brain w/o (07/16/23): Acute R thalamic infarct. Mild chronic vascular changes. I reviewed these images personally and this is my personal interpretation. -LDL 152 -A1c 5.2 -TTE (07/16/23): EF 55%, no wall motion abnormalities. LA normal. No PFO. -Telemetry: no afib. Review of Systems All systems reviewed & are unremarkable except as noted in HPI and below PFSH All Active Problems (Updated 07/16/23 @ 22:42 by Molly Farris MD) Ataxia of left upper extremity (Acute) Left hemiparesis (Acute) Advanced care planning/counseling discussion (Acute) Discharge planning issues (Acute) On deep vein thrombosis (DVT) prophylaxis (Acute) Acute CVA (cerebrovascular accident) (Acute) Postmenopausal atrophic vaginitis (Acute) Elevated blood pressure reading (Acute) Medical History (Updated 07/16/23 @ 22:42 by Molly Farris MD) Degenerative joint disease Goiter, nodular Malignant neoplasm of colon with rectum GERD (gastroesophageal reflux disease) CVA (cerebral vascular accident) 2017 COVID-19 TIA (transient ischemic attack) Surgical History (Updated 06/09/21 @ 10:20 by Shelby Florez MD) History of cholecystectomy H/O partial resection of colon H/O total hysterectomy 2009 Family History (Updated 07/14/23 @ 18:41 by Alix Carter APRN) Brother Cancer Father Cancer Sister Stroke Brother Heart disease Social History (Updated 06/09/21 @ 09:41 by Susana Silva) Smoking/Tobacco Use Status: Never Smoking risk assessment performed?: Yes Alcohol Intake: current Alcohol Intake frequency: holidays/special occasions only Drug use: Never Substance use type: does not use Household members: spouse Housing: house Communication Needs: Corrective Lenses Education Level: high school Do you need help understanding health information?: Rarely 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 Pets and animals: No Sexually active: No Do you think of yourself as: straight/heterosexual Current gender identity: female What is your relationship status?: Panel score (0-1 are the most socially isolated patients): 1 Special carla needs: No Agree to transfusion: Yes Seatbelt use: always Helmet use: Yes Drive intox or ride w/intox driver license reviewing officer: No Working smoke detector in home: Yes Fire extinguisher in home: Yes Carbon monox detector in home: Yes Firearms in home: Yes Do you feel safe in your relationship?: Yes Female Reproductive History Menstrual Age of Menarche: 12 Duration of menses: 3-5 days Menopause type: natural Date of menopause: 07/09/87 History History 2 4 Para Hx # Term Pregnancies 4 Multiple births Hx # Pregnancies Ectopic pregnancies AB induced Hx Number of Living Children 4 AB spontaneous Visit Medication and Allergies Active Medications Generic Name Dose Route Start Last Admin Trade Name Freq PRN Reason Stop Dose Admin Acetaminophen 0 mg 07/14/23 15:28 07/15/23 23:39 Acetaminophen 325 Mg Tab PO 325 mg Q4H PRN PRN Administration Al Hydrox/Mg Hydrox/Simethicone 30 ml 07/14/23 15:28 Mylanta Suspension 30 Ml Cup PO Q2H PRN PRN Aspirin 81 mg 07/15/23 08:30 07/16/23 08:04 Aspirin 81 Mg Chew CH 81 mg DAILY KELSEY Administration Atorvastatin Calcium 40 mg 07/14/23 17:40 07/15/23 20:41 Atorvastatin 40 Mg Tab PO 40 mg QPM KELSEY Administration Dicyclomine HCl 10 mg 07/14/23 15:28 07/16/23 08:08 Dicyclomine 10 Mg Cap PO 10 mg QID PRN PRN Administration Docusate Sodium 100 mg 07/14/23 15:28 Docusate Sodium 100 Mg Cap PO TID PRN PRN Docusate Sodium 100 mg 07/14/23 22:00 07/15/23 22:15 Docusate Sodium 100 Mg Cap PO Not Given HS KELSEY Enoxaparin Sodium 40 mg 07/14/23 18:00 07/15/23 17:56 Enoxaparin 40 Mg/0.4 Ml Syr SC 40 mg Q24H KELSEY Administration Famotidine 20 mg 07/14/23 20:00 07/16/23 08:04 Famotidine 20 Mg Tab PO 20 mg BID KELSEY Administration Fluticasone Propionate 0 gm 07/15/23 07:35 Fluticasone Nasal [place] 16 Gm Btl NS DAILY PRN PRN IV Miscellaneous Supplies 1 each 07/14/23 15:28 Iv Access IV DIRECTED KELSEY Latanoprost 0 ml 07/14/23 22:00 07/15/23 20:40 Latanoprost 0.005% 2.5 Ml Btl OP 1 drp HS KELSEY Administration Magnesium Hydroxide 30 ml 07/14/23 15:28 Milk Of Magnesia 30 Ml Cup PO DAILY PRN PRN Miconazole Nitrate 0 gm 07/14/23 15:28 Miconazole 2% Topical Powder 85 Gm Btl TP BID PRN PRN Pantoprazole Sodium 40 mg 07/15/23 07:30 07/16/23 08:04 Pantoprazole 40 Mg Tabcr PO 40 mg DAILY@0730 KELSEY Administration Pt's Own Cod Liver 1 each 07/16/23 08:30 07/16/23 08:05 Oil Capsules PO Not Given DAILY KELSEY Polyethylene Glycol 17 gm 07/14/23 15:28 Polyethylene Glycol 3350 17 Gm Packet PO DAILY PRN PRN Constipation Sodium Chloride 0 ml 07/14/23 15:28 Normal Saline Flush 10 Ml Syr IVP PRN PRN Sodium Chloride 0 ml 07/14/23 20:00 07/16/23 08:05 Normal Saline Flush 10 Ml Syr IVP 10 ml BID KELSEY Administration Sodium Chloride 0 ml 07/14/23 15:28 Normal Saline 10 Ml Vial IJ DIRECTED PRN Triamcinolone Acetonide 0 gm 07/14/23 15:28 Triamcinolone 0.1% Cr 15 Gm Tube TP BID PRN PRN Allergies hydrocodone bitartrate [From Vicodin] Allergy (Intermediate, Unverified 06/09/21 09:29) itch and breakout Exam Narrative Exam Narrative: Physical Exam: Gen: Patient of apparent stated age, NAD Head and face: no facial or cranial abnormalities Neck: Supple, no meningismus, no occipital tenderness CV: + S1, S2, RRR, no murmur Resp: CTA B/L Abd: soft, nontender, nondistended Ext: No edema. No clubbing or cyanosis. No bony deformity. Neuro Exam: Language: fluency, naming, repetition, and comprehension intact; Mental Status: AAOx3, current events intact, fund of knowledge intact; Speech: no dysarthria Cranial nerves: Funduscopy: not performed CN II: visual waterman intact CN III, IV, : extraocular movements intact, no nystagmus, pupils symmetric and reactive to light CN V: face sensation intact to PP CN VII: no facial asymmetry noted CN VIII: hearing intact bilaterally CN IX, X: palate rises symmetrically CN XI: trapezius/SCM 5/5 bilaterally CN XII: protrudes tongue symmetrically Sensory: intact to PP, vibration, and joint position in all extremities Motor: bulk and tone intact. Fine motor movements slightly reduced on the left. No pronator drift. Strength 5/5 throughout including the deltoids, biceps, triceps, wrist extensors, hip flexors, knee flexors, knee extensors, ankle flexors, and ankle extensors. Reflexes: hyporeflexic throughout at the biceps, triceps, brachioradialis, patella, and achilles tendons bilaterally; toes down going bilaterally; Coordination: FTN and HTS with ?subtle ataxia in the Left arm and leg Gait: not seen Results Last Vital Signs Temp 97.5 F L 07/16/23 07:29 Pulse 61 07/16/23 07:29 Resp 22 07/16/23 07:29 BP 149/82 H 07/16/23 07:29 Pulse Ox 95 07/16/23 07:29 Labs 07/15/23 06:25 07/15/23 06:25
--- NOTE | 2023-07-16 16:13 | PDOC.CMDIS ---
Date of service: 07/16/23 Time of Service: 16:13 LACE Index Scoring Tool Questions: Length of Stay (in days): 2 Was the patient admitted via the E.D.?: Yes Comorbidities: Cerebrovascular Disease E.D. Visits: 0 Answers: Total Score: 6 Risk of Readmission: Low Risk Care Management Discharge Plan Reason for Hospitalization: Acute CVA Discharge Plan: Bienvenido will return home with new orders for home health PT. She will transport via private vehicle with her family and follow up with her PCP and plan of care as prescribed. Patient/Family Education Needs: Review discharge instructions, discuss Ask Me Three. Services Needed at Discharge: Home Health Care Services SDOH Health Related Social Needs: Health related social needs risk of homeless, transpo insecurity
== END 2023-07-16 16:50 | disposition home health service (06) | DRG 65 ==
LOC: ER 10:30 → MS 15:02
PROVIDERS: Emergency Medicine Emergency Medical Services; Admitting Provider Internal Medicine; Emergency Provider Emergency Medicine Emergency Medical Services; PCP Physician Assistant Medical; Visit Provider Internal Medicine
DX: I63.89 Other cerebral infarction (principal); G81.94 Hemiplegia, unspecified affecting left nondominant side; R27.0 Ataxia, unspecified; I10 Essential (primary) hypertension; Z86.73 Personal history of transient ischemic attack (TIA), and cerebral infarction without residual deficits; H40.9 Unspecified glaucoma; Z79.82 Long term (current) use of aspirin; K21.9 Gastro-esophageal reflux disease without esophagitis; N95.2 Postmenopausal atrophic vaginitis; E04.9 Nontoxic goiter, unspecified; Z86.16 Personal history of COVID-19; R29.810 Facial weakness; Z85.038 Personal history of other malignant neoplasm of large intestine; Z85.048 Personal history of other malignant neoplasm of rectum, rectosigmoid junction, and anus; Z90.710 Acquired absence of both cervix and uterus; Z90.49 Acquired absence of other specified parts of digestive tract; R29.704 NIHSS score 4
CPT/HCPCS: 00123; 36415; 70496; 70498; 80048; 80053; 80061; 92610; 93005; 94640; 96374; 97161; 97530; 99223; 99285; J1650; 70551; 71046; 82607; 83036; 83735; 84443; 84484; 85025; 85610; 85730; 93010; 93306; 99233; 99239; J3490

== ENCOUNTER → 2023-07-16 12:16 | Outpatient (BNVA) | payer MEDICARE, OTHER, SELFPAY | PROVIDERS: PCP Physician Assistant Medical; Referring Provider Physician Assistant Medical; Visit Provider Psychiatry & Neurology Neurology ==

== ENCOUNTER 2023-08-21 18:01 | Outpatient (REF) | payer MEDICARE, OTHER, SELFPAY ==
[2023-08-21 16:00] LABS: ALT 33 U/L (14-59); AST 27 U/L (15-37); Albumin 3.7 g/dL (3.4-5.0); Alkaline Phosphatase 101 U/L (46-116); Anion Gap 8.4 mmol/L (3-11); BUN 16 mg/dL (7-18); Bilirubin, Total 0.5 mg/dL (0.2-1.0); CO2 27.6 mmol/L (21.0-32.0); CREATININE 0.9 mg/dL (0.55-1.02); Calcium 9.9 mg/dL (8.5-10.1); Chloride 102 mmol/L (98-107); Estimated GFR 63.04 (mL/min/1.73m2); Glucose 93 mg/dL (74-106); Potassium 3.9 mmol/L (3.5-5.1); Sodium 138 mmol/L (136-145); Total Protein 7.8 g/dL (6.4-8.2)
== END 2023-08-21 18:02 | disposition home or self-care (01) ==
LOC: NCHCN 18:01
PROVIDERS: PCP Physician Assistant Medical; Visit Provider Physician Assistant Medical
DX: I63.89 Other cerebral infarction (principal); I10 Essential (primary) hypertension
CPT/HCPCS: 80053

== ENCOUNTER → 2023-08-28 04:13 | Outpatient (CLI) | payer MEDICARE, OTHER, SELFPAY ==
--- NOTE | 2023-08-28 | DI.US_ITS ---
Exam(s) US THYROID EXAM: US THYROID CLINICAL HISTORY: MASS OF THYROID GLAND,E04.9,NONTOXIC GOITER. TECHNIQUE: Ultrasound thyroid performed using standard protocol. COMPARISON: US US ECHOCARDIOGRAM W BUBBLES from 07/16/2023 FINDINGS: The left thyroid lobe is enlarged, expanded by a dominant nodule which is described below. The right hepatic lobe and isthmus exhibit normal size. There are 2 solid nodules in the right lobe. No nodu les in the isthmus. Details as follows: LEFT THYROID LOBE: Measures 4 cm AP x 4 cm wide x 7.4 cm craniocaudal the left lobe is expanded by a and almost completely occur occupied by a large 6 solid-cystic nodule. Details of this nodule are as follows: Size: This nodule measures 5.6 cm craniocaudal by 3.6 cm x 4.4 cm cm Composition: Mixed zijrf-nylerg-8 point Echogenicity: The solid components of this nodule are isoechoic to the gland parenchyma- Shape: Wider than taller in the transverse plane Margin: Smooth- 0 points Echogenic Foci: Contains punctate echogenic foci-3 points Total Points for this nodule: 5 ACR Ti-Rads Category: TR4 This TR 4 level nodule requires ultrasound-guided FNA as it measures greater than 1.5 cm RIGHT THYROID LOBE: Measures 1.5 cm AP x 0.3 wide x 3.9 cm craniocaudal Contains 2 nodules. The more superior of these is described 1st: Nodule #1 Size: Measures 0.5 x 0.5 x 0.5 cm cm Composition: Solid-2 points Echogenicity: Hypoechoic-2 points Shape: Wider than taller in the transverse plane-0 points Margin: Smooth-0 points Echogenic Foci: None-0 points Total points for this nodule: 4 ACR Ti-Rads Category: 4 This TR 4 level nodule can be followed as it measures less than 1.5 cm. Nodule #2 This 2nd right lobe nodule is slightly lower down Size: Measures 1.7 by 0.9 x 0.9 cm Composition: Solid-2 points Echogenicity: Hypoechoic compared to surrounding parenchyma-2 points Shape: Wider than taller in the transverse plane-0 points Margin: Lobulated-2 points Echogenic Foci: Contains punctate echogenic foci-3 points Total Points for this nodule: 9 ACR Ti-Rads Category: 5 This TR 5 level nodule requires ultrasound-guided FNA as it measures greater than 1 cm. LYMPH NODES: A few small lymph nodes noted bilaterally. No significant lymphadenopathy evident.. IMPRESSION: 1. There are total of 3 nodules in the thyroid gland, the largest being in the left lobe and the 2 sm aller nodules are located in the right lobe. The large dominant nodule in the left lobe as well as t he larger of the 2 nodules in the right lobe require ultrasound-guided FNA, as described above 2. There is no significant lymphadenopathy. DATA REPOSITORY:
== END ==
PROVIDERS: PCP Physician Assistant Medical; Visit Provider Physician Assistant Medical
DX: E04.2 Nontoxic multinodular goiter (principal)
CPT/HCPCS: 76536

== ENCOUNTER → 2023-10-18 04:56 | Outpatient (CLI) | payer MEDICARE, OTHER, SELFPAY ==
--- NOTE | 2023-10-18 | DI.DEXA_ITS ---
Exam(s) XR DEXA BONE DENSITY W/WO ANGEL EXAM: XR DEXA BONE DENSITY W/WO ANGEL CLINICAL HISTORY: Z78.0 Asymptomatic menopausal state TECHNIQUE: COMPARISON: CR LUMBAR SPINE COMPLETE from 04/21/2013 DX XR DEXA BONE DENSITY W/WO ANGEL from 05/28/2018 CR,XR XR CHEST 2V PA LATERAL from 07/14/2023 FINDINGS: Lateral Spine Image: There is new mild anterior wedging of the L2 vertebral body. Left hip: Total T-Score: -1.9. This compares to -1.3 on the prior examination. Total Z-Score: 0.4 T- and Z-scores: Findings are consistent with osteopenia. Lumbar Spine: Total T-Score: 1.0. This compares to 0.1 on the prior examination. Total Z-Score: 3.8 T- and Z-scores: Within normal limits. IMPRESSION: No evidence of osteoporosis.
--- NOTE | 2023-10-18 | DI.MAMMO_ITS ---
Exam(s) MAMMO SCREENING EXAM: MAMMO SCREENING CLINICAL HISTORY: Z12.31 Encounter for screening mammogram for malivelisse treviñop of breast TECHNIQUE: Bilateral full field digital CC and MLO mammographic images were obtained with 3D tomosyn thesis and utilizing computer aided detection (CAD). COMPARISON: Available for comparison. FINDINGS: Masses/Architectural Distortion: None seen. Microcalcifications: No suspicious pleomorphic-type are seen. Skin Thickening/Nipple Retraction: None. IMPRESSION: 1. No significant interval change with no specific features of malignancy noted. 2. Unless there is more urgent need, screening mammography is recommended, as per [employer] guidelines. BI-RADS Category 1 - Negative Breast Density - Category B - Scattered areas of fibroglandular density Breast density category C or D implies that the patient has dense breast tissue. Dense breast tissue is very common and is not abnormal but dense breast tissue can make it harder to find cancer on a ma mmogram. Also, dense breast tissue may increase their breast cancer risk. This information about the result of the mammogram report was provided to the patient to raise their awareness. Use this report when you speak with the patient about their risks for breast cancer, which includes their family hist ory. At that time, you may recommend for more screening tests (Ultrasound or MRI) as they might be us eful based on their risk. A negative radiographic report should not delay biopsy if a dominant or clinically suspicious mass is present. Up to ten percent of cancers are not identified on mammography. A negative report may reinforce clinical impression. Adenosis and dense breasts may obscure an underlying neoplasm. False positive reports average 6 to 10%. Patient will receive a letter notifying them of these results.
== END ==
PROVIDERS: PCP Physician Assistant Medical; Visit Provider Physician Assistant Medical
DX: Z12.31 Encounter for screening mammogram for malignant neoplasm of breast (principal); M85.88 Other specified disorders of bone density and structure, other site; Z78.0 Asymptomatic menopausal state
CPT/HCPCS: 77063; 77067; 77080

== ENCOUNTER → 2023-10-30 04:09 | Outpatient (CLI) | payer MEDICARE, OTHER, SELFPAY ==
--- NOTE | 2023-10-30 07:15 | DI.US_ITS ---
Exam(s) US NEEDLE LOCAL OTHER WO RAD EXAM: Multinodular thyroid, 2 nodules,US GUIDED BXME04.2 COMPARISON: No exams were available for comparison TECHNIQUE: Ultrasound performed using standard protocol. FINDINGS: Sonography was provided for Dr. Hoff during the performance of a thyroid nodule biopsies. Please refer to the procedure report for complete details. DATA REPOSITORY:
--- NOTE | 2023-10-30 11:45 | PAPNONF_PTH ---
PATIENT: Bienvenido Walters LOC: [facility] U#:[id number] AGE/SX: 85/F ROOM: RE10/30/[address]: Omega Hoff MD : [id number] BED: DIS: SPEC #: [id number] RECD: 10/30/23 12:52 STATUS: YADIRA RERadha #: [id number] AURE: 10/30/23 11:[address]: Omega Hoff DEPT: [facility] Cytology RECD BY: Shamika Johnson ENTERED: 10/30/23 12:54 SP TYPE: TARA WHEELER DR: Eulogio Ordaz Tissues: 1 - BODY FLUID CYTO-FINE NEEDLE ASPIRATE[facility] 2 - BODY FLUID CYTO-FINE NEEDLE ASPIRATE-[facility] Procedures: BODY FLUID CYTO-FINE NEEDLE ASPIRATE[facility] Comments: [id number] (PATH FNA CONSULT) (REFRIGERATED)
--- NOTE | 2023-10-30 12:00 | OPPNE_ITS ---
Date of service: 10/30/23 Time of Service: 12:00 Procedure Note Date of procedure: 10/30/23 Procedure: Ultrasound-guided FNA, bilateral thyroid nodules, pathology present Procedure Diagnosis: Bilateral thyroid nodules meeting criteria for biopsy Procedure Indications: Options were explained to the patient regarding further management. She elected to undergo FNA of bilateral thyroid nodules. Consent was filled out and signed prior to the procedure. Risks and benefits were discussed at length. She noted no change in her medications. She noted no other concerns. Procedure Description: The patient was positioned in supine position with her neck slightly extended. Ultrasound was used to localize the nodule on the right and the patient was prep ped and draped in appropriate fashion. 1% lidocaine with 1/100,000 epinephrine was injected in the skin and subcutaneous tissues overlying the thyroid nodule. A 25-gauge needle was then passed repeatedly into the thyroid nodule and the specimen handed to pathology. 2 passes were necessary to hit cellular adequacy. Once achieving cellular adequacy, 2 additional passes were made for potential Afirma testing again under ultrasound guidance. Attention was then turned to the opposite side where the same was repeated. Once both nodules have been biopsied and Afirma drawn for both, the wounds were inspected for relative hemostasis and a sterile dressing was applied. The patient was then allowed to sit, stand, and then ambulate. Her vital signs remained stable. She will remove the bandage later on today and not replace it. She will call with any signs of infection or any concerns. She may use Tylenol or ibuprofen for any discomfort. She will call if she does not hear from me within 7 days with regard to pathology results. She had no further questions. She is comfortable with this plan.
== END ==
PROVIDERS: PCP Physician Assistant Medical; Visit Provider Otolaryngology
DX: E04.2 Nontoxic multinodular goiter (principal); D34 Benign neoplasm of thyroid gland
CPT/HCPCS: 10005; 10006; 76942; 88104

== ENCOUNTER 2024-09-23 13:10 | Outpatient (REF) | payer MEDICARE, SELFPAY ==
[2024-09-23 16:03] LABS: ALT 27 U/L (14-59); AST 28 U/L (15-37); Albumin 3.6 g/dL (3.4-5.0); Alkaline Phosphatase 113 U/L (46-116); Anion Gap 8.1 mmol/L (3-11); BUN 17 mg/dL (7-18); Bilirubin, Total 0.5 mg/dL (0.2-1.0); CO2 26.9 mmol/L (21.0-32.0); CREATININE 0.9 mg/dL (0.55-1.02); Calcium 9.3 mg/dL (8.5-10.1); Calculated LDL 66 mg/dL (<100); Chloride 105 mmol/L (98-107); Cholesterol 173 mg/dL (<200); Estimated GFR 62.65 (mL/min/1.73m2); Glucose 101 mg/dL (74-106); HDL Cholesterol 79 mg/dL (>or=50); Potassium 4.1 mmol/L (3.5-5.1); Sodium 140 mmol/L (136-145); Total Protein 7.4 g/dL (6.4-8.2); Triglyceride 140 mg/dL (<150); Vitamin D 25 Total 23 ng/mL (30-100)
== END 2024-09-23 13:11 | disposition home or self-care (01) ==
LOC: NCHCN 13:10
PROVIDERS: PCP Physician Assistant Medical; Visit Provider Physician Assistant Medical
DX: I63.9 Cerebral infarction, unspecified (principal); M85.89 Other specified disorders of bone density and structure, multiple sites
CPT/HCPCS: 80053; 80061; 82306

== ENCOUNTER 2024-10-14 00:55 | Outpatient (CLI) | payer MEDICARE, OTHER, SELFPAY ==
--- NOTE | 2024-10-14 06:30 | DI.US_ITS ---
Exam(s) US THYROID EXAM: US THYROID CLINICAL HISTORY: Assess for stability,MULTINODULAR thyroid,e04.2. TECHNIQUE: Ultrasound thyroid performed using standard protocol. COMPARISON: US US THYROID from 08/28/2023 US US NEEDLE LOCAL OTHER WO RAD from 10/30/2023 FINDINGS: ISTHMUS: 5 mm RIGHT LOBE: Size: 4.4 x 1.4 x 1.6 cm Echogenicity: Normal. Vascularity: Normal. Nodules: Stable size and appearance of previously noted nodules, the larger being at the lower pole. LEFT LOBE: Size: 7.2 x 3.3 x 4.0 cm Echogenicity: Normal. Vascularity: Normal. Nodules: Dominant mixed cystic and solid nodule, isoechoic, smoothly marginated with punctate echogen ic foci. This was previously biopsied. Measures 5.9 x 3.6 x 4.4 cm, not significantly changed give n measurement error. OTHER FINDINGS: None. IMPRESSION: Stable appearance of thyroid nodules. DATA REPOSITORY:
== END 2024-10-14 01:15 ==
PROVIDERS: PCP Physician Assistant Medical; Visit Provider Otolaryngology
DX: E04.2 Nontoxic multinodular goiter (principal)
CPT/HCPCS: 76536

== ENCOUNTER 2025-03-24 14:58 | Outpatient (REF) | payer MEDICARE, OTHER, SELFPAY ==
[2025-03-24 16:00] LABS: TSH 1.51 uIU/mL (0.36-3.74); Vitamin D 25 Total 34 ng/mL (30-100)
== END 2025-03-24 14:59 | disposition home or self-care (01) ==
LOC: NCHCN 14:58
PROVIDERS: PCP Physician Assistant Medical; Visit Provider Physician Assistant Medical
DX: E04.1 Nontoxic single thyroid nodule (principal); M85.80 Other specified disorders of bone density and structure, unspecified site
CPT/HCPCS: 82306; 84439; 84443